=== PATIENT | female | born 1940 | race Caucasian/White ===

== ENCOUNTER → 2016-09-28 | Outpatient (CLI) | payer MEDICARE ==
[~2016-09-28] MED LIST: E-Z PAQUE 60% w/v SUSP 355ML BOTTLE As Ordered ONE; E-Z-GAS II EFFERVESCENT PACKET (SODIUM BICARB./CITRIC ACID/SIMETHICONE) As Ordered ONE; E-Z-HD 98% w/w 340GM SUSP BTL As Ordered ONE
--- NOTE | 2016-09-28 16:18 | REP ---
UPPER GI, AIR CONTRAST: The procedure was performed under the direct supervision of Dr. Rodriguez. The images were reviewed with Dr. Rodriguez. The physician support coordinator film shows no organomegaly or pathological masses. The intestinal gas pattern is nonspecific. There are surgical clips in the right upper quadrant. There are vascular calcifications identified. Liquid barium and gas-producing granules were given in the erect position as well as liquid barium in the prone oblique position in order to perform a double-contrast upper GI examination. The oral and pharyngeal stage of deglutition are unremarkable. Esophageal transport is prompt and efficient and there is no esophagitis, stricture, mucosal ring, or hiatal hernia. There is gastroesophageal reflux demonstrated to the level of the allison. The stomach corbin are normally outlined. The rugal folds are smooth and regular. There is no gastritis, neoplasm, or ulcer disease. The duodenal corbin are normally outlined. The mucosal folds are smooth and regular. There is no duodenitis, pancreatitis, peptic ulcer disease, or neoplasm. There is a diverticulum seen off the descending portion of the duodenum. The visualized portion of the proximal small bowel appears normal in course and caliber. IMPRESSION: 1. There is gastroesophageal reflux demonstrated to the level of the allison. 2. There is a diverticulum seen in the descending portion of the duodenum. 1 minute and 59 seconds of fluoroscopic time was utilized for this procedure. Reviewed by MARCELLUS Che 09/28/2016 05:06 PEdited and Signed by Stefan Rodriguez MD 09/29/2016 03:35 P
== END ==
LOC: M RAD 09:37
PROVIDERS: ATTEND Internal Medicine Cardiovascular Disease
DX: K44.9 Diaphragmatic hernia without obstruction or gangrene (principal)

== ENCOUNTER → 2016-10-05 | Outpatient (CLI) | payer MEDICARE ==
[~2016-10-05] MED LIST changes: -E-Z PAQUE 60% w/v SUSP 355ML BOTTLE As Ordered ONE; -E-Z-GAS II EFFERVESCENT PACKET (SODIUM BICARB./CITRIC ACID/SIMETHICONE) As Ordered ONE; -E-Z-HD 98% w/w 340GM SUSP BTL As Ordered ONE; +ISOVUE-370 76% 100ML VIAL (Q9967) As Ordered ONE
--- NOTE | 2016-10-08 09:41 | REP ---
Clinical: Peripheral arterial disease. Technique: Axial contrast enhanced images from the lung bases through the bilateral lower extremities using angiographic technique with 100 ml Isovue 370 intravenous contrast material. Coronal and sagittal re-formations through the abdomen/pelvis and lower extremities are obtained including batch MPR sequences of the aorta through lower extremities. Findings: Moderate mixed atheromatous plaquing noted of the abdominal aorta and bilateral common iliac arteries to the origins of the common femoral arteries with calcified plaque at the origins of the celiac access, SMA, and bilateral solitary renal arteries. Otherwise normal enhancement is appreciated and there is no evidence for aneurysm or dissection and no appreciable stenoses. With regards to the bilateral lower extremities, moderate amount of atheromatous plaque is appreciated involving the superficial femoral arteries (right greater than left) but with satisfactory enhancement to the level of the popliteal fossa where normal bilateral trifurcation is appreciated with satisfactory three-vessel runoff through the bilateral mid/distal calves and eventually two-vessel runoff to the left ankle with essentially single vessel runoff (posterior tibial artery) to the right ankle. Liver, pancreas, bilateral adrenal glands and right kidney are normal. Spleen demonstrates parenchymal calcifications suggesting prior granulomatous disease. Left kidney includes 5.3 cm simple upper pole renal cyst. The enteric system is without obstruction or acute inflammatory process. Scattered colonic and predominantly sigmoid diverticulosis noted without acute diverticulitis. Pelvis demonstrates normal bladder and evidence for prior hysterectomy. No ascites. No free air. No significant adenopathy. Musculoskeletal structures demonstrate degenerative changes without focal osseous abnormality. Impression: CT angiographic evaluation as detailed above. 5.3 cm simple left renal cyst. Diverticulosis without acute diverticulitis. Signed by Vitor Colin MD 10/08/2016 09:33 A
== END ==
LOC: M RAD 08:39
PROVIDERS: ATTEND Internal Medicine Cardiovascular Disease
DX: I73.9 Peripheral vascular disease, unspecified (principal)
CPT/HCPCS: 75635; Q9967

== ENCOUNTER → 2016-10-19 | Outpatient (CLI) | payer MEDICARE ==
--- NOTE | 2016-10-19 17:04 | REP ---
Left knee series: Five views: History: Acute left knee pain. Findings: Five views of the left knee demonstrate diffuse osteopenia. Vascular calcifications noted. There is mild medial compartment osteoarthritic spurring and minimal medial compartment joint space narrowing. There is also patellofemoral spurring laterally on the sunrise view. There is nonarticular spurring at the superior pole of the patella at the quadriceps tendon insertion as well. No joint effusion is seen. Impression: Mild medial and patellofemoral femoral compartment osteoarthritic spurring. Nonarticular patellar spurring is also noted. Vascular calcification seen. No acute abnormality. Signed by Aris Davison MD 10/19/2016 07:36 P
== END ==
LOC: M LRY 16:21
PROVIDERS: ATTEND Nurse Practitioner Family
DX: M25.762 Osteophyte, left knee (principal)

== ENCOUNTER → 2017-03-16 | Outpatient (CLI) | payer MEDICARE ==
--- NOTE | 2017-03-16 10:19 | REP ---
Clinical: Chronic renal disease. Follow-up left renal cyst. Comparison: 05/05/2016. Technique: Real time dobbs scale ultrasound examination using curved array transducer. Findings: The bilateral kidneys are relatively normal in contour, size, echogenicity, and reniform shape without hydronephrosis, nephrolithiasis, mass or right cystic lesion. No perinephric fluid collections are identified. Right kidney measures 9.8 x 4.1 x 5.2 cm. The left kidney measures 11.2 x 4.9 x 6.1 cm and includes a stable 5.6 x 4.7 x 4.8 cm mid/upper pole cyst. The bladder is unremarkable and currently measures approximately 10.0 x 10.0 x 4.1 cm. Impression: Stable left renal cyst. Otherwise normal renal ultrasound. Signed by Vitor Colin MD 03/16/2017 10:10 A
== END ==
LOC: M RAD 09:02
PROVIDERS: ATTEND Internal Medicine Nephrology
DX: N18.3 Chronic kidney disease, stage 3 (moderate) (principal); N28.1 Cyst of kidney, acquired

== ENCOUNTER → 2017-07-14 | Outpatient (REF) | payer MEDICARE ==
[2017-07-14 12:23] LABS: C REACTIVE PROTEIN QUANTITATIV < 0.30 MG/DL (0.00-0.30)
[2017-07-14 12:23] LABS: RHEUMATOID FACTOR QUANT 44.7 IU/ML (0-15.0)
[2017-07-14 12:28] LABS: BASO # 0.1 10^3/uL (0.0-0.2); BASO % 0.7 % (0.0-1.0); EOS # 0.3 10^3/uL (0.0-0.50); HEMATOCRIT 39.2 % (36.0-47.0); HEMOGLOBIN 13.9 g/dl (12.0-16.0); IMMATURE GRANULOCYTE % 0.4 % (0-0); LYMPH # 2.6 10^3/uL (1.5-4.5); LYMPH % 32.8 % (24.0-44.0); MEAN CORPUSCULAR HEMOGLOBIN 32.6 pg (27.0-33.0); MEAN CORPUSCULAR HGB CONC 35.5 g/dl (32.0-36.5); MEAN CORPUSCULAR VOLUME 91.8 fl (80.0-96.0); MONO # 0.5 10^3/uL (0.0-0.8); MONO % 6.5 % (0.0-5.0); NEUTROPHILS # 4.5 10^3/uL (1.8-7.7); NEUTROPHILS % 55.6 % (36.0-66.0); PLATELET COUNT, AUTOMATED 284 10^3/uL (150-450); RED BLOOD COUNT 4.27 10^6/uL (4.00-5.40); RED CELL DISTRIBUTION WIDTH 12.5 % (11.5-14.5)
[2017-07-14 13:03] LABS: ERYTHROCYTE SEDIMENTATION RATE 17 mm/hr (0-30)
== END ==
LOC: M LABDRAW1 10:21
DX: M17.12 Unilateral primary osteoarthritis, left knee (principal); Z79.899 Other long term (current) drug therapy
CPT/HCPCS: 86140

== ENCOUNTER 2018-05-13 08:17 | Day surgery (SDC) | payer MEDICARE ==
[2018-05-13] MEDS: NS 1,000 ML IV (06:30)
[~2018-05-13 08:17] MED LIST changes: -ISOVUE-370 76% 100ML VIAL (Q9967) As Ordered ONE; +LIDOCAINE 2% INJ 100 MG/5 ML SDV (FOR ANES.) As Ordered; +PROPOFOL 200 MG/20 ML VIAL As Ordered
== END 2018-05-13 13:25 | disposition home or self-care (01) ==
LOC: M OPP 08:17
DX: Z12.11 Encounter for screening for malignant neoplasm of colon (principal); Z86.010 Personal history of colon polyps; D12.3 Benign neoplasm of transverse colon; D12.0 Benign neoplasm of cecum; K63.5 Polyp of colon; K64.8 Other hemorrhoids; K57.30 Diverticulosis of large intestine without perforation or abscess without bleeding; F17.210 Nicotine dependence, cigarettes, uncomplicated; E78.00 Pure hypercholesterolemia, unspecified; I12.9 Hypertensive chronic kidney disease with stage 1 through stage 4 chronic kidney disease, or unspecified chronic kidney disease; E11.9 Type 2 diabetes mellitus without complications; K21.9 Gastro-esophageal reflux disease without esophagitis; M12.9 Arthropathy, unspecified; F32.9 Major depressive disorder, single episode, unspecified; N18.9 Chronic kidney disease, unspecified; Z79.899 Other long term (current) drug therapy; Z79.82 Long term (current) use of aspirin; Z79.4 Long term (current) use of insulin; Z88.5 Allergy status to narcotic agent; Z91.018 Allergy to other foods
CPT/HCPCS: 45385

== ENCOUNTER → 2018-08-26 | Outpatient (CLI) | payer MEDICARE ==
[~2018-08-26] MED LIST changes: +AMLO2.5T3 PO; +ASPI-161 PO; +CO Q10CA PO; +FAMO1TAB25 PO; +GABA-1171 PO; +GLIP5TAB20 PO; +INSULANT SC; +JANU100T PO; -LIDOCAINE 2% INJ 100 MG/5 ML SDV (FOR ANES.) As Ordered; +PANT40TA3 PO; +PROBCAP4 PO; -PROPOFOL 200 MG/20 ML VIAL As Ordered; +VITA100067 PO; +ZOLO25TA PO
--- NOTE | 2018-08-26 10:23 | REP ---
Bilateral carotid artery duplex ultrasound: Peak flow velocity analysis: RIGHT LEFT ICA Peak flow velocity cm/sec 75.8 151.0 ICA Diastolic flow velocity cm/sec 21.6 38.5 ICA/CCA Ratio 0.9 2.1 ECA Peak flow velocity cm/sec 132.4 100.7 CCA Peak flow velocity cm/sec 85.6 73.4 There is heavy atheromatous plaque in the proximal left ICA. There is elevated peak flow velocity in the left proximal ICA compatible with 50 - 69% stenosis. Otherwise, no atheromatous plaque is identified. There is no stenosis otherwise. There is flow reversal in the right vertebral artery. There is antegrade flow in the left vertebral artery. This may represent right subclavian steal. Consider CTA of the aortic arch, subclavian arteries and extracranial carotid arteries. Electronically Signed by Stefan Eller MD 08/26/2018 10:14 A
--- NOTE | 2018-08-26 13:51 | REP ---
RIGHT UPPER EXTREMITY DUPLEX DOPPLER ARTERIAL ULTRASOUND: Real-time ultrasound evaluation and duplex Doppler interrogation of the right upper extremity arterial system is performed. There is evidence of severe stenosis or occlusion of the distal right subclavian artery with reconstitution via reversal flow in the right vertebral artery. Central right subclavian artery demonstrates peak systolic velocity 47 cm/s. No flow is seen in the right subclavian artery up to the mid aspect immediately distal to the anastomosis with the right vertebral artery. Monophasic wave forms are seen peripheral to this throughout the right upper extremity arterial system. Peak systolic velocity of the mid right subclavian arteries is 73 cm/s, distal 39 cm/s. Peak systolic velocity right axillary artery 47 cm/s, brachial artery 56 cm/s, radial artery 46 cm/s and ulnar artery 52 cm/s. IMPRESSION: There is evidence of occlusion or severe stenosis mid right subclavian artery with reconstitution via the right vertebral artery, with reversal of flow in that vertebral artery. Findings consistent with subclavian steal on the right. Electronically Signed by Stefan Rodriguez MD 08/26/2018 04:03 P
== END ==
LOC: M RAD 08:51
PROVIDERS: ATTEND Surgery Vascular Surgery
DX: I65.23 Occlusion and stenosis of bilateral carotid arteries (principal); I77.1 Stricture of artery

== ENCOUNTER → 2018-09-08 | Outpatient (CLI) | payer MEDICARE ==
--- NOTE | 2018-09-08 16:26 | REP ---
Clinical: Positive rheumatoid factor. Technique: AP, lateral, bilateral oblique views of the right and left hand. Findings: Right hand demonstrates subchondral sclerosis, joint space narrowing and marginal osteophytosis involving the interphalangeal joints and most notably the second and fifth distal interphalangeal joints. Mild elements of periarticular swelling are suggested without significant erosive changes or obvious periarticular loose bodies. Subchondral sclerosis and joint space narrowing at the radiocarpal joint line are also identified. The ulnar styloid and triquetrum appear relatively intact. No fracture or dislocation. Left hand demonstrates subchondral sclerosis, joint space narrowing and mild marginal osteophytosis primarily involving the interphalangeal joints. Minimal periarticular swelling identified at the second and third interphalangeal joints. No significant erosive changes or periarticular loose bodies are identified. Subchondral sclerosis and joint space narrowing at the radiocarpal joint line are also identified. The ulnar styloid and triquetrum appear relatively intact. No fracture or dislocation. Impression: Moderate/advanced osteoarthritic degenerative changes. Electronically Signed by Vitor Colin MD 09/08/2018 04:17 P
== END ==
LOC: M LRY 15:23
PROVIDERS: ATTEND Internal Medicine Rheumatology
DX: R76.8 Other specified abnormal immunological findings in serum (principal); M19.041 Primary osteoarthritis, right hand; M19.042 Primary osteoarthritis, left hand

== ENCOUNTER → 2018-11-10 | Outpatient (CLI) | payer MEDICARE ==
[~2018-11-10] MED LIST changes: +B121000T PO; +BENA5TA PO; +GLIP2.5T6 PO
--- NOTE | 2018-11-10 12:36 | REP ---
RENAL ULTRASOUND: HISTORY: Chronic kidney disease. The kidneys are normal in echogenicity. The right kidney measures 4.5 cm in transverse by 3.9 cm in AP by 9.3 cm in cephalocaudal dimensions. The left kidney measures 3.4 cm in transverse by 5.6 cm in AP by 10.7 cm in cephalocaudal dimensions. A 0.7 cm cyst is present in the lower pole of the right kidney. A 6.1 cm cyst is present in the upper pole of the left kidney. There is no hydronephrosis or mass. There are no filling defects in the urinary bladder. IMPRESSION: Bilateral renal cysts. Electronically Signed by Enzo Lock MD 11/10/2018 12:43 P
== END ==
LOC: M RAD 08:56
PROVIDERS: ATTEND Internal Medicine Nephrology
DX: N28.1 Cyst of kidney, acquired (principal); N18.3 Chronic kidney disease, stage 3 (moderate); I15.0 Renovascular hypertension

== ENCOUNTER → 2019-03-07 | Outpatient (CLI) | payer MEDICARE ==
[~2019-03-07] MED LIST changes: +LIQUID POLIBAR PLUS 105% w/v 1900ML BTL As Ordered ONE; +PROHANCE 279.3MG/ML 5ML VIAL (A9576) As Ordered ONE
--- NOTE | 2019-03-07 23:36 | REP ---
BARIUM AND AIR CONTRAST The procedure was performed under the direct supervision of Dr. Rodriguez. The images were reviewed with Dr. Rodriguez. The store associate film shows no organomegaly or pathological masses. The intestinal gas pattern is nonspecific. There are surgical clips noted in the right upper quadrant. Liquid barium and air were instilled into the colon and retrograde flow of the barium air mixture. There is free flow of contrast to the cecum. The cecum is difficult to see as it lies deep in the pelvis. There is reflux into the terminal ileum. There are innumerable diverticula in the sigmoid colon. The sigmoid colon is redundant. This limits evaluation for polyps. There are no annular constricting lesions identified. There are no polypoid masses identified. Impression: There are innumerable diverticula seen throughout the sigmoid colon and scattered diverticula seen throughout the remainder of the colon. Otherwise, double contrast barium enema within normal limits. 1.4 minutes of fluoroscopy time was utilized for this procedure. Reviewed by MARCELLUS Che 03/07/2019 04:43 P Electronically Signed by Stefan Rodriguez MD 03/07/2019 11:27 P
== END ==
LOC: M RAD 08:55
PROVIDERS: ATTEND Internal Medicine Gastroenterology
DX: K57.30 Diverticulosis of large intestine without perforation or abscess without bleeding (principal)

== ENCOUNTER → 2019-04-10 | Outpatient (CLI) | payer MEDICARE ==
[~2019-04-10] MED LIST changes: -LIQUID POLIBAR PLUS 105% w/v 1900ML BTL As Ordered ONE; -PROHANCE 279.3MG/ML 5ML VIAL (A9576) As Ordered ONE
--- NOTE | 2019-04-10 15:21 | REP ---
REASON: Followup stenosis. The latest prior examination of 08/26/2018 showed a 50-69% stenosis in the left internal carotid artery. Once again, there is echogenic material seen along the carotid arterial corbin some of which casts an acoustic shadow consistent with calcific deposition and seemingly slightly increased from the prior exam of 08/26/2018. RIGHT LEFT CCA Systolic 103.5 cm/s 85.6 cm/s CCA Diastolic 14.5 cm/s 12.1 cm/s ICA Systolic 111.1 cm/s 286.9 cm/s ICA Diastolic 25.8 cm/s 83.3 cm/s ICA/CCA Ratio 1.1 3.4 Analysis of the spectral waveform shows significant left internal carotid arterial spectral broadening with complete fill in of the spectral window. There is retrograde flow in the right vertebral artery. IMPRESSION: 1. There is greater than 70% stenosis of the left internal carotid artery according to the NASCET consensus criteria. 2. There is a right sided subclavian steal syndrome. 3. Stenosis is secondary to both calcified and noncalcified atheromatous plaque formation which appears to have increased somewhat from the prior exam. Electronically Signed by Cesar Delacruz DO 04/11/2019 09:41 A
== END ==
LOC: M RAD 11:23
PROVIDERS: ATTEND Surgery Vascular Surgery
DX: I65.23 Occlusion and stenosis of bilateral carotid arteries (principal)

== ENCOUNTER → 2019-07-25 | Outpatient (CLI) | payer MEDICARE ==
--- NOTE | 2019-07-25 11:12 | REP ---
CAROTID ULTRASOUND: Real-time ultrasound evaluation and duplex Doppler interrogation of the extracranial carotid vasculature is performed and compared to a prior study of 04/10/2019. There is again moderate plaquing and narrowing in the carotid bulbs and internal carotid arteries left greater than right. There is gain elevated peak systolic velocity in the left internal carotid artery 262.8 cm/s compatible with greater than 70% stenosis. ICA/CCA ratio is elevated. Retrograde flow is seen in the right vertebral artery compatible with subclavian steel. There is increased velocity with antegrade flow in the left vertebral artery. RIGHT LEFT Peak systolic velocity ICA 115.3 cm/s 262.8 cm/s End diastolic velocity ICA 29.4 cm/s 39.7 cm/s Peak systolic velocity CCA 98.3 cm/s 93.1 cm/s Peak systolic velocity ECA 178.9 cm/s 111.1 cm/s ICA/CCA ratio 1.17 3.36 IMPRESSION: No significant change when compared to a prior study of 04/10/2019. There are again findings compatible with stenosis of the left ICA over 70%. Retrograde flow in the right vertebral artery is compatible with right-sided subclavian steel. Electronically Signed by Stefan Rodriguez MD 07/25/2019 07:20 P
== END ==
LOC: M RAD 08:45
PROVIDERS: ATTEND Physician Assistant
DX: I65.23 Occlusion and stenosis of bilateral carotid arteries (principal)

== ENCOUNTER 2019-08-19 21:42 | Inpatient (IN) | payer MEDICARE ==
[~2019-08-19] VITALS: Ht 160 cm; Wt 60.5 kg
[2019-08-19 23:35] VITALS: BP 160/66
[2019-08-19] MEDS ORDERED: NS 1,000 ML IV SCH (23:45)
--- NOTE | 2019-08-19 23:56 | HPEPDOC ---
[facility] Medical History & Physical Date of Admission Aug 19, 2019 Date of Service: Aug 19, 2019 Attending Physician: TOMAS LANGFORD MD History and Physical TIME OF SERVICE: 11:59 PM CHIEF COMPLAINT: Abdominal pain HISTORY OF PRESENT ILLNESS: This is a 72 old female who presented to an outside hospital with complaints of mid upper cramping and out of 10 in severity, abdominal pain that began around 3 PM. Associated symptoms included nausea, fevers and chills. She has been able to pass and thinks her last BM was about 3 days ago. Per discussion with Dr. Andrey Cardenas her initial workup including CBC, chemistry, lipase and H. pylori were unremarkable. CT of the abdomen showed partial small bowel obstruction secondary to adhesions or stricture, and chronic old L2 fracture . REVIEW OF SYSTEMS: 12 point review of systems negative except as listed in HPI PAST MEDICAL/ SURGICAL HISTORY: IDDM with neuropathy. Chronic HTN Chronic constipation GERD Osteoporosis/L2 lumbar fracture Herniated disc Status post cholecystectomy Status post hysterectomy SOCIAL HISTORY: She smokes FAMILY HISTORY: Arthritis Hypertension CVA CAD ALLERGIES: Please see below. HOME MEDICATIONS: Please see below. PHYSICAL EXAMINATION: VITAL SIGNS: Please see below. GEN: well-nourished / well developed/ NAD INTEGUMENT: not flushed HEENT: NCAT / mucus membranes moist and pink CVS: RRR/NMRG/ no JVP / radial pulses intact LUNGS: clear to auscultation bilaterally on room air ABDOMEN: Contour (flat) / soft & not tender with palpation MSK/EXTREMITIES: range of motion intact in all 4 extremities NEURO: CN 2-12 are grossly intact / speech is not dysarthric PSYCH: alert and oriented to person place and time/ able to understand and follow all commands LABORATORY DATA: WBC 10.4, hemoglobin 13.2, platelets 194, sodium 136, potassium 4.3, chloride 100, CO2 24, BUN 22, creatinine 1.2, glucose 224, lipase 67, H. pylori negative IMAGING: See HPI ASSESSMENT: Ms. Martin is [id number] female with a history of IDDM with neuropathy, HTN, constipation GERD, osteoporosis and multiple abdominal surgeries, who is admitted for evaluation of partial small bowel obstruction. PLAN: 1. Partial small bowel obstruction. Likely due to strictures/adhesions. Plan: Admit to medical floor/nothing by mouth/IV fluids/morphine when necessary for pain/follow-up KUB in the morning/follow up with general surgery 2. IDDM with neuropathy - Plan: f/u accuchecks & A1C / hypoglycemia protocol / sliding scale insulin / hold oral anti-glycemics / while she is NPO we will give her D5NS and will decrease her insulin to detemir 15 units daily QHS ( her home dose is Lantus 32 units QHS) / gabapentin 3. Chronic HTN -Plan: Resume Benzapril 4. Dyslipidemia - Plan: Aspirin/statin 5. Osteoporosis/L2 lumbar fracture - Plan: She will need a workup for oste oporosis including DEXA scan, TSH, and urine calcium which can be done on an outpatient basis DVT PROPHYLAXIS: Lovenox DISPOSITION: Home after more than 2 midnight's stay Home Medications Scheduled Aspirin (Aspirin EC) 81 Mg Tab, 81 MG PO QPM Atorvastatin Calcium (Atorvastatin Calcium) 10 Mg Tablet, 10 MG PO QPM Benazepril HCl (Benazepril HCl) 5 Mg Tab, 2.5 MG PO DAILY Cholecalciferol (Vitamin D3) (Vitamin D3) 1,000 Unit Capsule, 1,000 UNIT PO DAILY Clopidogrel Bisulfate (Clopidogrel) 75 Mg Tablet, 75 MG PO QPM TAKES AT 1300 Cyanocobalamin (Vitamin B-12) (Vitamin B-12) 100 Mcg Tablet, 100 MCG PO DAILY Famotidine (Famotidine) 10 Mg Tab, 40 MG PO QPM Gabapentin (Gabapentin) 100 Mg Cap, 100 MG PO BID Glipizide (Glipizide ER) 5 Mg Tab, 5 MG PO QAM Glipizide (Glipizide ER) 2.5 Mg Tab, 2.5 MG PO QHS Insulin Glargine (Lantus) 1 Units/0.01 Ml Susp, 32 UNITS SC QHS Lactobacillus Acidophilus (Probiotic) 1 Each Capsule, 1 CAP PO BID Magnesium Oxide (Magnesium Oxide) 500 Mg Tablet, 500 MG PO QPM Nicotine (Nicotine Patch) 14 Mg Patch.td24, 1 PATCH TD DAILY [place]land-3 Fatty Acids/Fish Oil (Fish Oil 1,000 mg Capsule) 1 Each Capsule, 1,000 MG PO DAILY Polyethylene Glycol 3350 (Polyethylene Glycol 3350) 17 Gm Powd.pack, 1 PKT PO DAILY Sennosides/Docusate Sodium (Senokot-S Tablet) 1 Each Tablet, 1 TAB PO BID Sertraline Hcl (Zoloft) 25 Mg Tab, 25 MG PO DAILY Ubidecarenone (Co Q10) 200 Mg Capsule, 200 MG PO QPM Allergies Coded Allergies: Crab (Verified Allergy, Severe, swelling, 09/21/18) Mushroom (Verified Allergy, Severe, swelling, 09/21/18) codeine (Verified Allergy, Severe, SWELLING, 08/20/19) A-FIB/CHADSVASC A-FIB History Current/History of A-Fib/PAF?: No Current PO Anticoag Therapy: TOMAS Marquez MD Aug 19, 2019 23:56
[2019-08-20] MEDS ORDERED: ONDANSETRON 4MG/2ML VIAL (J2405) IV PRN (00:15)
[2019-08-20] MEDS ORDERED: MORPHINE 2 MG/ML 1ML VIAL (J2270) IV PRN (00:15)
[2019-08-20 00:22] LABS: HEMATOCRIT 38.5 % (36.0-47.0); HEMOGLOBIN 13.1 g/dl (12.0-15.5); MEAN CORPUSCULAR HEMOGLOBIN 31.3 pg (27.0-33.0); MEAN CORPUSCULAR VOLUME 91.9 fl (80.0-96.0); PLATELET COUNT, AUTOMATED 193 10^3/uL (150-450); RED BLOOD COUNT 4.19 10^6/uL (4.00-5.40); WHITE BLOOD COUNT 6.8 10^3/uL (4.0-10.0)
[2019-08-20 00:33] LABS: INR 1.07; PROTHROMBIN TIME 13.6 SECONDS (11.8-14.0)
[2019-08-20 00:34] LABS: PARTIAL THROMBOPLASTIN TIME 23.3 SECONDS (25.0-38.4)
[2019-08-20] MEDS ORDERED: PROBCAP14 PO (00:46)
[2019-08-20] MEDS ORDERED: B-12100T2 PO (00:46)
[2019-08-20] MEDS ORDERED: COQ1200C3 PO (00:46)
[2019-08-20] MEDS ORDERED: VITA100054 PO (00:46)
[2019-08-20] MEDS ORDERED: CLOP75TA2 PO (00:49)
[2019-08-20] MEDS ORDERED: FISH1000 PO (00:49)
[2019-08-20] MEDS ORDERED: MAGN500T12 PO (00:49)
[2019-08-20] MEDS ORDERED: ATOR1TAB19 PO (00:49)
[2019-08-20 00:52] LABS: ALBUMIN 3.9 GM/DL (3.2-5.2); BILIRUBIN,TOTAL 0.3 MG/DL (0.2-1.0); CALCIUM LEVEL 8.6 MG/DL (8.8-10.2); CREATININE FOR GFR 1.21 MG/DL (0.55-1.30); GLOMERULAR FILTRATION RATE 45.8 (>39); POTASSIUM SERUM 4.8 MEQ/L (3.5-5.1); TOTAL PROTEIN 7.1 GM/DL (6.4-8.2)
[2019-08-20] MEDS: NICOTINE 14 MG/24 HR TRANSDERMAL TD SCH ×2 (01:29→10:02)
[2019-08-20] MEDS ORDERED: GLUCOSE 4 GM CHEW TABLET PO PRN (05:30)
[2019-08-20] MEDS ORDERED: GLUCAGON FOR INJ 1 MG VIAL (J1610) SC PRN (05:30)
[2019-08-20] MEDS ORDERED: DEXTROSE 50% 50 ML SYRINGE IV PRN (05:30)
[2019-08-20 06:00] VITALS: BP 101/62
[2019-08-20] MEDS ORDERED: D5/0.9%NACL 1000ML IV ONE (06:00)
[2019-08-20] MEDS ORDERED: PILL CUTTER 1 EACH XX PRN (06:15)
[2019-08-20] MEDS ORDERED: D5W/0.9% SODIUM CHLORIDE 1,000 ML IV SCH (06:15)
[2019-08-20 06:31] LABS: HEMATOCRIT 36.9 % (36.0-47.0); HEMOGLOBIN 12.4 g/dl (12.0-15.5); MEAN CORPUSCULAR HEMOGLOBIN 31.3 pg (27.0-33.0); MEAN CORPUSCULAR HGB CONC 33.6 g/dl (32.0-36.5); MEAN CORPUSCULAR VOLUME 93.2 fl (80.0-96.0); PLATELET COUNT, AUTOMATED 189 10^3/uL (150-450); RED BLOOD COUNT 3.96 10^6/uL (4.00-5.40); WHITE BLOOD COUNT 10.9 10^3/uL (4.0-10.0)
[2019-08-20 06:48] LABS: CALCIUM LEVEL 8.6 MG/DL (8.8-10.2); CREATININE FOR GFR 1.13 MG/DL (0.55-1.30); GLOMERULAR FILTRATION RATE 49.6 (>39); MAGNESIUM LEVEL 2.2 MG/DL (1.8-2.4); POTASSIUM SERUM 4.5 MEQ/L (3.5-5.1)
[2019-08-20] MEDS ORDERED: ENOXAPARIN 40 MG/0.4 ML SYRINGE (J1650) SC SCH (09:00)
[2019-08-20] MEDS ORDERED: SERTRALINE HCL 25 MG TABLET PO SCH (09:00)
[2019-08-20] MEDS ORDERED: GABAPENTIN 100 MG CAP PO SCH (09:00)
[2019-08-20] MEDS ORDERED: MIRALAX *UNIT DOSE* 17GM PACKET PO SCH (09:00)
[2019-08-20] MEDS ORDERED: BENAZEPRIL 5 MG TAB PO SCH (09:00)
--- NOTE | 2019-08-20 09:04 | REP ---
Clinical: Follow up small bowel obstruction. Technique: Single supine view of the abdomen and pelvis. Findings: Oral contrast identified within the large bowel requires correlation. The bowel gas pattern is nonspecific and there is no evidence for obstruction or obvious perforation. No organomegaly. Prior cholecystectomy. Skeletal structures demonstrate age-related changes. Impression: Nonspecific bowel gas pattern. Contrast material outlines the colon. Electronically Signed by Vitor Colin MD 08/20/2019 08:55 A
[2019-08-20 10:00] VITALS: BP 129/77
[2019-08-20] MEDS ORDERED: MOM 30ML SUSPENSION UDC PO ONE (10:00)
[2019-08-20 10:05] VITALS: BP 129/77
--- NOTE | 2019-08-20 10:25 | CR.PDOC ---
General Surgery Consultation Date of Consultation 08/20/19 History and Physical CONSULT REPORT FOR: hospitalist service REASON FOR CONSULTATION: ? partial sbo HISTORY OF PRESENT ILLNESS: Patient is admitted by the overnight hospitalist from [facility] with complaints of sharp epigastric abdominal pain that abruptly started at about 3 pm yesterday associated with nausea. Labs done were normal. CT was read as possible partial sbo and thus was transferred here. While in the ER she received IV dilaudid 0.5 mg IV twice, last one at 19:59. It does not look like she received further pain medications with us overnight. She got a dose of milk of magnesia this morning and is ordered for miralax daily. She had an xray this morning showing nonobstructive bowel pattern. At the time I saw her, she was on full liquids and reports tolerating it. No BMs yet. PAST MEDICAL HISTORY: IDDM with neuropathy. Chronic HTN Chronic constipation GERD Osteoporosis/L2 lumbar fracture Herniated disc neuropathy PAST SURGICAL HISTORY: INCLUDES: Status post cholecystectomy Status post hysterectomy ALLERGIES: Please see below. HOME MEDICATIONS: Please see below. REVIEW OF SYSTEMS: GENERAL: denies fevers, chills, abnormal weight loss. NECK: Denies any neck pain MUSCULOSKELETAL: reports back pain. SKIN: Denies rash. NEUROLOGIC: Denies headache, stroke and transient ischemic attack. HEMATOLOGY/ONCOLOGY: Denies bleeding or clotting disorder. HEART: Denies any chest pains, palpitations, paroxysmal dyspnea, orthopnea. PULMONARY: Denies chronic cough, dyspnea and wheezing. GASTROINTESTINAL: see HPI. GENITOURINARY: Denies dysuria, frequency, hematuria and nocturia. ENDOCRINE: Denies polydipsia, polyphagia, polyuria, heat or cold intolerance. INFECTIOUS: Denies any recent upper respiratory tract infection, UTI, need for use of antibiotics. NUTRITION: Reports good appetite. PHYSICAL EXAMINATION: VITALS SIGNS: Please see below. GENERAL APPEARANCE:Patient see working on her full liquids, denies any discomfort at this time. SKIN: warm and dry. HEENT: Normocephalic, atraumatic. [place] palpebral conjunctiva, anicteric sclerae. Lips and mucosa appear moist. NECK: Supple, no thyromegaly. No obvious jugular venous distention. LUNGS: Clear to auscultation bilaterally. No wheezing appreciated. HEART: No chest wall abnormalities. Regular rate and rhythm with no murmurs appreciated. ABDOMEN: Abdomen is slight rounded, minimally distended, soft, nontender on palpation. Her laparoscopic cholecystectomy port sites are actually hard to find. She has a lowe midline incision from her hysterectomy without any associated incisional hernias. Nontender on palpation. EXTREMITIES: Extremities have no deformities. No edema identified ANCILLARIES: I reviewed her colonoscopy reports performing Dr. Duncan on 05/13/2018 showing diverticulosis with some slight narrowing of the sigmoid colon associated with this. She had a barium enema performed 03/07/2019 showing multiple diverticula throughout the colon but no gross persistent stenosis or obstruction. LABORATORY DATA: Please see below. IMAGING STUDIES: She had a CT of the abdomen and pelvis done at [facility] Read as partial small bowel obstruction with a focal transition zone at the left lower quadrant of the pelvis without discrete mass. Fecalization of small bowel loops in the jejunum to the level of the left lowr quadrant of the pelvis. SB dilated to 3.3 cms Abdominal x-ray done 08/30/2019 shows no obstructive pattern IMPRESSION AND PLAN: Abdominal pain possibly secondary to partial small bowel obstruction seems to resolve by itself. On her xray this morning the contrast that she had on her CT is visualized on her colon. No noticeable leftover distention of the small bowel. I think the obstruction probably have resolved and we can advance diet as she is able to tolerate. Agree with miralax. Vital Signs Vital Signs Date Time Temp Pulse Resp B/P (MAP) Pulse Ox O2 Delivery O2 Flow Rate FiO2 08/20/19 06:00 97.9 77 18 101/62 (75) 95 Room Air I&Os I&O- Last 24 Hours up to 6 AM 08/20/19 06:00 Intake Total 60 ml Output Total 400 ml Balance -340 ml Laboratory Data Labs 24H Laboratory Tests 2 08/20/19 00:10: Nucleated Red Blood Cells % (auto) 0.0, Prothrombin Time 13.6, Prothromb Time International Ratio 1.07, Activated Partial Thromboplast Time 23.3L, Anion Gap 7L, Glomerular Filtration Rate 45.8, Calcium Level 8.6L, Total Bilirubin 0.3, Aspartate Amino Transf (AST/SGOT) 15, Alanine Aminotransferase (ALT/SGPT) 24, Alkaline Phosphatase 54, Total Protein 7.1, Albumin 3.9, Albumin/Globulin Ratio 1.22 08/20/19 00:54: Urine Color YELLOW, Urine Appearance CLEAR, Urine pH 6.0, Urine Specific [place] 1.053, Urine Protein NEGATIVE, Urine Glucose (UA) 2+H, Urine Ketones NEGATIVE, Urine Blood NEGATIVE, Urine Nitrite NEGATIVE, Urine Bilirubin NEGATIVE, Urine Ur obilinogen 0.2, Urine Leukocyte Esterase NEGATIVE, Urine WBC (Auto) 1, Urine RBC (Auto) 4H, Urine Hyaline Casts (Auto) 0, Urine Bacteria (Auto) NEGATIVE, Urine Squamous Epithelial Cells 0, Urine Mucus (Auto) SMALL, Urine Sperm (Auto) 08/20/19 06:00: Nucleated Red Blood Cells % (auto) 0.0, Anion Gap 7L, Glomerular Filtration Rate 49.6, Calcium Level 8.6L, Magnesium Level 2.2 CBC/BMP Laboratory Tests 08/20/19 00:10 08/20/19 06:00 Home Medications Scheduled Aspirin (Aspirin EC) 81 Mg Tab, 81 MG PO QPM, (Reported) Atorvastatin Calcium (Atorvastatin Calcium) 10 Mg Tablet, 10 MG PO QPM, (Reported) Benazepril HCl (Benazepril HCl) 5 Mg Tab, 2.5 MG PO DAILY, (Reported) Cholecalciferol (Vitamin D3) (Vitamin D3) 1,000 Unit Capsule, 1,000 UNIT PO DAILY, (Reported) Clopidogrel Bisulfate (Clopidogrel) 75 Mg Tablet, 75 MG PO QPM, (Reported) TAKES AT 1300 Cyanocobalamin (Vitamin B-12) (Vitamin B-12) 100 Mcg Tablet, 100 MCG PO DAILY, (Reported) Famotidine (Famotidine) 10 Mg Tab, 40 MG PO QPM, (Reported) Gabapentin (Gabapentin) 100 Mg Cap, 100 MG PO BID, (Reported) Glipizide (Glipizide ER) 5 Mg Tab, 5 MG PO QAM, (Reported) Glipizide (Glipizide ER) 2.5 Mg Tab, 2.5 MG PO QHS, (Reported) Insulin Glargine (Lantus) 1 Units/0.01 Ml Susp, 32 UNITS SC QHS, (Reported) Lactobacillus Acidophilus (Probiotic) 1 Each Capsule, 1 CAP PO BID, (Reported) Magnesium Oxide (Magnesium Oxide) 500 Mg Tablet, 500 MG PO QPM, (Reported) [place]-3 Fatty Acids/Fish Oil (Fish Oil 1,000 mg Capsule) 1 Each Capsule, 1,000 MG PO DAILY, (Reported) Sertraline Hcl (Zoloft) 25 Mg Tab, 25 MG PO DAILY, (Reported) Ubidecarenone (Co Q10) 200 Mg Capsule, 200 MG PO QPM, (Reported) Allergies Coded Allergies: Crab (Verified Allergy, Severe, swelling, 09/21/18) Mushroom (Verified Allergy, Severe, swelling, 09/21/18) codeine (Verified Allergy, Severe, SWELLING, 08/20/19) NATHAN HOGAN MD Aug 20, 2019 09:52
[2019-08-20] MEDS ORDERED: CLOPIDOGREL 75 MG TAB PO SCH (13:00)
[2019-08-20 14:00] VITALS: BP 131/73
[2019-08-20] MEDS ORDERED: PEG1POW PO (15:16)
[2019-08-20] MEDS ORDERED: SENO8.6T10 PO (15:16)
[2019-08-20] MEDS ORDERED: NICO14PA TD (15:16)
--- NOTE | 2019-08-20 15:31 | DS.PDOC ---
Discharge Summary General Date of Admission Aug 19, 2019 at 23:50 Date of Discharge aug 20, 2019 Discharge Summary DISCHARGE DIAGNOSES: partial sbo Ileus IDDM with neuropathy. Chronic HTN Chronic constipation GERD GENERAL SURGEON: Dr Hernandez HOSPITAL COURSE: 78 year old female presented with abd pain to an outlying hospital where CT abd: partial SBO, admitted to [facility] for surgical services. She was kept npo, given ivfluids, given miralax with 4 bowel movements, and no subsequent nausea. Abdom inal distension subsided, and despite having one episode of vomiting at 11pm last night, wanted to eat a regular diet this morning. repeat abdominal xray:. The bowel gas pattern is nonspecific and there is no evidence for obstruction or obvious perforation.No organomegaly. Prior cholecystectomy. Skeletal structures demonstrate age-related changes. She tolerated full liquid diet, and ambulated 3 x around the nurse's station without pain, or worsening abdominal distention. She requested to be discharged home. She has had prior colonoscopies in the past and had polyps removed. She was instructed to have immediate followup with both her primary care physician and surgeon within one week of hospital discharge. DISCHARGE MEDICATIONS: Please see below. ALLERGIES: Please see below. PHYSICAL EXAMINATION ON DISCHARGE: VITAL SIGNS: Please see below. GEN: AAOx3 Lungs: CTAB AEBE Heart: S1S2 RRR Abd: soft nontender nondistended (+) BS ext: no edema LABORATORY DATA/IMAGING: Please see below. DISPOSITION: HOME DISCHARGE INSTRUCTIONS: FU W PCP AND GENERAL SURGERY IN 1 WK RETURN TO ER IF RECURRENT SYMPTOMS DISCHARGE CONDITION: STABLE TIME SPENT ON DISCHARGE: 30 minutes. Vital Signs/I&Os Vital Signs Date Time Temp Pulse Resp B/P (MAP) Pulse Ox O2 Delivery O2 Flow Rate FiO2 08/20/19 10:05 129/77 08/20/19 10:00 97.6 63 18 98 08/20/19 06:00 Room Air I&O- Last 24 Hours up to 6 AM 08/20/19 06:00 Intake Total 60 ml Output Total 400 ml Balance -340 ml Laboratory Data Labs 24H Laboratory Tests 2 08/20/19 00:10: Nucleated Red Blood Cells % (auto) 0.0, Prothrombin Time 13.6, Prothromb Time International Ratio 1.07, Activated Partial Thromboplast Time 23.3L, Anion Gap 7L, Glomerular Filtration Rate 45.8, Calcium Level 8.6L, Total Bilirubin 0.3, Aspartate Amino Transf (AST/SGOT) 15, Alanine Aminotransferase (ALT/SGPT) 24, Al kaline Phosphatase 54, Total Protein 7.1, Albumin 3.9, Albumin/Globulin Ratio 1.22 08/20/19 00:54: Urine Color YELLOW, Urine Appearance CLEAR, Urine pH 6.0, Urine Specific [place] 1.053, Urine Protein NEGATIVE, Urine Glucose (UA) 2+H, Urine Ketones NEGATIVE, Urine Blood NEGATIVE, Urine Nitrite NEGATIVE, Urine Bilirubin NEGATIVE, Urine Urobilinogen 0.2, Urine Leukocyte Esterase NEGATIVE, Urine WBC (Auto) 1, Urine RBC (Auto) 4H, Urine Hyaline Casts (Auto) 0, Urine Bacteria (Auto) NEGATIVE, Urine Squamous Epithelial Cells 0, Urine Mucus (Auto) SMALL, Urine Sperm (Auto) 08/20/19 06:00: Nucleated Red Blood Cells % (auto) 0.0, Anion Gap 7L, Glomerular Filtration Rate 49.6, Calcium Level 8.6L, Magnesium Level 2.2 08/20/19 11:32: Bedside Glucose (Misc Panel) 181H CBC/BMP Laboratory Tests 08/20/19 00:10 08/20/19 06:00 FSBS Laboratory Tests Test 08/20/19 11:32 Range/Units Bedside Glucose (Misc Panel) 181 83-110 MG/DL Discharge Medications Scheduled Aspirin (Aspirin EC) 81 Mg Tab, 81 MG PO QPM, (Reported) Atorvastatin Calcium (Atorvastatin Calcium) 10 Mg Tablet, 10 MG PO QPM, (Reported) Benazepril HCl (Benazepril HCl) 5 Mg Tab, 2.5 MG PO DAILY, (Reported) Cholecalciferol (Vitamin D3) (Vitamin D3) 1,000 Unit Capsule, 1,000 UNIT PO DAILY, (Reported) Clopidogrel Bisulfate (Clopidogrel) 75 Mg Tablet, 75 MG PO QPM, (Reported) TAKES AT 1300 Cyanocobalamin (Vitamin B-12) (Vitamin B-12) 100 Mcg Tablet, 100 MCG PO DAILY, (Reported) Famotidine (Famotidine) 10 Mg Tab, 40 MG PO QPM, (Reported) Gabapentin (Gabapentin) 100 Mg Cap, 100 MG PO BID, (Reported) Glipizide (Glipizide ER) 5 Mg Tab, 5 MG PO QAM, (Reported) Glipizide (Glipizide ER) 2.5 Mg Tab, 2.5 MG PO QHS, (Reported) Insulin Glargine (Lantus) 1 Units/0.01 Ml Susp, 32 UNITS SC QHS, (Reported) Lactobacillus Acidophilus (Probiotic) 1 Each Capsule, 1 CAP PO BID, (Reported) Magnesium Oxide (Magnesium Oxide) 500 Mg Tablet, 500 MG PO QPM, (Reported) Nicotine (Nicotine Patch) 14 Mg Patch.td24, 1 PATCH TD DAILY [place]-3 Fatty Acids/Fish Oil (Fish Oil 1,000 mg Capsule) 1 Each Capsule, 1,000 MG PO DAILY, (Reported) Polyethylene Glycol 3350 (Polyethylene Glycol 3350) 17 Gm Powd.pack, 1 PKT PO DAILY Sennosides/Docusate Sodium (Senokot-S Tablet) 1 Each Tablet, 1 TAB PO BID Sertraline Hcl (Zoloft) 25 Mg Tab, 25 MG PO DAILY, (Reported) Ubidecarenone (Co Q10) 200 Mg Capsule, 200 MG PO QPM, (Reported) Allergies Coded Allergies: Crab (Verified Allergy, Severe, swelling, 09/21/18) Mushroom (Verified Allergy, Severe, swelling, 09/21/18) codeine (Verified Allergy, Severe, SWELLING, 08/20/19) DANIEL CALLEJAS MD Aug 20, 2019 15:24
[2019-08-20] MEDS ORDERED: LEVEMIR (INSULIN DETEMIR) 1 UNITS/0.01ML SC SCH ×2 (21:00)
[2019-08-20] MEDS ORDERED: ATORVASTATIN 10 MG TAB PO SCH (21:00)
[2019-08-20] MEDS ORDERED: ASPIRIN 81 MG ENTERIC TAB PO SCH (21:00)
== END 2019-08-20 16:38 | disposition home or self-care (01) | DRG 390 ==
LOC: M MSPAV 23:50
PROVIDERS: ADMIT Internal Medicine; ATTEND General Practice
DX: K56.51 Intestinal adhesions [bands], with partial obstruction (principal); E11.40 Type 2 diabetes mellitus with diabetic neuropathy, unspecified; K59.09 Other constipation; K21.9 Gastro-esophageal reflux disease without esophagitis; M81.0 Age-related osteoporosis without current pathological fracture; F17.200 Nicotine dependence, unspecified, uncomplicated; E78.5 Hyperlipidemia, unspecified; I10 Essential (primary) hypertension; Z79.82 Long term (current) use of aspirin; Z79.84 Long term (current) use of oral hypoglycemic drugs; Z79.899 Other long term (current) drug therapy; Z88.5 Allergy status to narcotic agent; Z91.013 Allergy to seafood; Z91.018 Allergy to other foods; Z90.49 Acquired absence of other specified parts of digestive tract

== ENCOUNTER → 2019-09-04 | Outpatient (CLI) | payer MEDICARE ==
[~2019-09-04] MED LIST changes: +ATOR1TAB19 PO; +B-12100T2 PO; +CLOP75TA2 PO; +COQ1200C3 PO; +FISH1000 PO; +MAGN500T12 PO; +NICO14PA TD; +PEG1POW PO; +PROBCAP14 PO; +SENO8.6T10 PO; +VITA100054 PO
--- NOTE | 2019-09-04 15:19 | REP ---
Bilateral arterial upper extremity Doppler ultrasound: History: Atherosclerosis of the [place] arteries. Right upper arm pain. Findings: Relatively normal triphasic and biphasic arterial Doppler waveforms are noted throughout the left upper extremity. Monophasic waveforms are noted in the right upper extremity arteries. Right vertebral artery shows reversal of flow. 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 Right upper extremity velocity chart: Subclavian artery 104 cm/S Vertebral artery 119 reversed Subclavian mid 95 cm/S Subclavian distal 62 Axillary 54 Proximal brachial 69 Mid brachial 76 Distal brachial 77 Proximal radial 69 Distal radial 68 Proximal ulnar 81 Distal ulnar 61 Left upper extremity velocity chart: Proximal subclavian 174 cm/S Vertebral 84 Mid subclavian 179 Distal subclavian 97 Axillary 115 Proximal brachial 136 Mid brachial 150 Distal brachial 141 Proximal radial 128 Distal radial 116 Proximal ulnar 93 Distal ulnar 56 Electronically Signed by Aris Davison MD 09/04/2019 03:10 P
== END ==
LOC: M RAD 13:02
PROVIDERS: ATTEND Physician Assistant
DX: I70.208 Unspecified atherosclerosis of native arteries of extremities, other extremity (principal); M79.621 Pain in right upper arm

== ENCOUNTER → 2019-10-11 | Outpatient (CLI) | payer MEDICARE ==
[~2019-10-11] MED LIST changes: +ACETAMINOPHEN 325 MG TAB As Ordered ONE; +ACETAMINOPHEN TAB 650MG DOSE (2X325MG) PO SCH; +CLOPIDOGREL 75 MG TAB As Ordered ONE; +CLOPIDOGREL 75 MG TAB PO ONE; +HEPARIN SOD (PORCINE) 5000UNITS/ML VIAL (J1644 PER 1000UNITS) As Ordered ONE; +ISOVUE-300 61% 50ML VIAL As Ordered ONE; +LIDOCAINE 1% MDV 20ML VIAL As Ordered ONE; +LIDOCAINE 1% SDV 30ML VIAL As Ordered ONE; +LIDOCAINE 2% 100MG/5ML SDV (FOR ANES.) As Ordered ONE; +LIDOCAINE W/EPINEPHRINE 1% 20ML VIAL As Ordered ONE; +MIDAZOLAM INJ 2MG/2ML VIAL (J2250 PER 1MG) As Ordered ONE; +NS 1,000 ML IV SCH; +OXYC1TAB23 PO; +PHENYLephrine HCL 500 MCG/5 ML (100MCG/ML) SYRINGE (J2370) As Ordered ONE; +ceFAZolin 1GM VIAL (J0690 PER 500MG) As Ordered ONE; +ceFAZolin 2 GM/D5W 50 ML IV BAG (J0690 PER 500MG) As Ordered ONE; +ePHEDrine SULFATE 25 MG/5 ML(5MG/ML) SYRINGE As Ordered ONE; +fentaNYL 100 MCG/2 ML INJECTION (J3010) As Ordered ONE; +propofoL 500 MG/50 ML VIAL As Ordered ONE
[2019-10-11 09:10] LABS: HEMATOCRIT 37.3 % (36.0-47.0); HEMOGLOBIN 12.7 g/dl (12.0-15.5); MEAN CORPUSCULAR HEMOGLOBIN 31.6 pg (27.0-33.0); MEAN CORPUSCULAR VOLUME 92.8 fl (80.0-96.0); PLATELET COUNT, AUTOMATED 293 10^3/uL (150-450); RED BLOOD COUNT 4.02 10^6/uL (4.00-5.40); WHITE BLOOD COUNT 8.4 10^3/uL (4.0-10.0)
[2019-10-11 09:30] LABS: CALCIUM LEVEL 8.6 MG/DL (8.8-10.2); CREATININE FOR GFR 1.1 MG/DL (0.55-1.30); GLOMERULAR FILTRATION RATE 51.1 (>39); POTASSIUM SERUM 4.6 MEQ/L (3.5-5.1)
--- NOTE | 2019-10-11 11:51 | ROOPDOC ---
[facility] Report Of Operation Report of Operation DATE OF PROCEDURE: 10/11/19 PREPROCEDURE DIAGNOSES: Atherosclerosis the [place] vessels with claudication and worsening pain and numbness right upper extremity POSTPROCEDURE DIAGNOSES: Same PROCEDURE: 1. Ultrasound-guided access right brachial artery 2. Selection of right subclavian, innominate, and aortic arch with arteriograms and oblique views of the right innominate, carotid artery, and subclavian artery. 3. Angioplasty of the right subclavian artery with a 5 x 100 and 7 x 100 Naoma balloons 4. Completion arteriogram 5. Cutdown right brachial artery with direct repair of arteriotomy SURGEON: Rob Carnes MD ANESTHESIA: Local anesthesia 8 mL lidocaine, 3 mL lidocaine with epinephrine. Moderate intravenous conscious sedation was supervised by Dr. Carnes. The patient was independent only monitored by registered nurse assigned to the Department of radiology using automated blood pressure, EKG, and pulse oximetry. The detailed sedation record is permanently stored in the hospital information system. The following is the presedation record: Start time 10:03, stop time 11:15, Versed 3 mg IV, fentanyl 150 g IV, heparin 3000 units IV, Ancef 1 g IV. INDICATION FOR PROCEDURE: This is a very pleasant 78-year-old patient with severe atherosclerosis in the [place] vessels and suspicion of right subclavian stenosis due to retrograde flow through the vertebral artery suggesting subclavian steal. The patient does have greater than 20 mmHg difference between the right upper extremity and left upper extremity systolic blood pressures. She also complains of claudication with minimal use of her right arm, and fairly consistent numbness and tingling of her hand. We discussed the risks benefits alternatives to a right subclavian arteriogram and potential intervention. We did discuss that with the right subclavian, our intervention depends on preservation of flow to the carotid artery and minimalization of risk for embolic stroke during intervention. However, if we are able to safely improve flow with angioplasty and/or stenting, we will do that on this procedure. Patient was extensively counseled and all questions were answered. Informed consent was obtained. INTERPRETATION: 1. The patient has a widely patent innominate and common carotid artery on the right, the subclavian artery appears to have a corkscrew wrap around the carotid, with bulky near occlusive calcified plaque at its origin extending into the innominate, with very little antegrade flow from the innominate to the subclavian vessel. There is retrograde flow through the vertebral artery into the subclavian. 2. After crossing the near occlusion at the origin of the right subclavian, we did see improvement in flow with sequential angioplasty with a 5 x 100 and 7 x 100 Naoma balloons. No embolization, extravasation, or dissections were noted. REPORT OF OPERATION: Patient was brought to the angiographic suite in stable condition. Her right upper extremity was prepped and draped in sterile fashion. A timeout was performed. Sedation and antibiotics were given without complication. Ultrasound was used to guide access to the brachial artery with a microneedle and a wire was passed through this access under fluoroscopic guidance. A 4 Sinhala sheath was placed and flushed with saline. Through this access, a Glidewire and a glide cath were advanced towards the proximal subclavian artery under fluoroscopic guidance. Initially, we could not navigate the wire or the catheter into the innominate artery. Initial arteriograms showed bulky near occlusive calcified plaque. Eventually, we were able to navigate the wire in the corkscrew fashion around the carotid into the innominate and into the descending thoracic aorta. We exchange the sheath for a 5 [place] 45 cm destination sheath and flushed the sheath with saline. A pigtail catheter was advanced into the aortic arch and many oblique views of the right subclavian were obtained in order to try to get a view the origin of the right subclavian from the origin of the common carotid on the right. This proved very challenging due to the corkscrew nature of the subclavian vessel. Eventually images were obtained that revealed it would be very challenging to stent the right subclavian vein without possibly embolizing to the carotid which could result stroke, or encouraging on flow into the common carotid. Therefore, we luc ected a 5 x 100 Naoma balloon to predilate the vessel due to the extremely tight stenosis. Once this predilation was performed, we exchange for a 7 x 100 Naoma balloon and a three-minute inflation was performed. Following this, there was a much improve flow through the subclavian artery and a bounding pulses at the radial artery. Ideally, we would like to stent this as well to maintain patency, but I feel this is a bit risky in this patient due to her anatomy and the bulky calcified nature of her plaque. This then concluded our procedure. We states that sheath over the wire for short 5 Sinhala sheath and flushed the sheath with saline. Local anesthesia was administered to the skin and subcutaneous tissue over the antecubital crease near the sheath. A [place]ev[place] sverse incision was made in compassing the skin access site of the sheath. We then carefully dissected down through the soft tissue to the brachial artery. It was very superficial. Proximal and distal control were obtained with bulldog clamps the sheath was removed. The artery was irrigated and 5-0 Prolene suture was used to primarily close the arteriotomy. Before restoring flow we flushed the inflow and outflow and did not note any thrombosis. Again we irrigated with heparinized saline and the arteriotomy was hemostatic securing her suture. Flow was still excellent at the radial artery. Ultrasound was used to examine the brachial artery and radial and ulnar arteries. There was no thrombus noted in either, and good pulsatility was noted on ultrasound. We then irrigated the tissue with saline and approximate the deep tissue with a running Vicryl suture and interrupted deep dermal Vicryl sutures were used to approximate the skin and the skin was closed with a running subcuticular Monocryl suture. Mastisol and S [place]-Strips replace the length of the wound and sterile dressings were applied. The patient tolerated the procedure and the sedation well and was taken to recovery in stable condition. ESTIMATED BLOOD LOSS: Approximately 2 mL. COMPLICATIONS: None. PLAN: The angioplasty we did today should improve flow to the right upper extremity, but it certainly is more likely to remain patent with stenting. Ideally, we would be able to stent the stenosis at the origin of the right subclavian, but due to the bulky calcified nature of the plaque, its proximity to the origin of the carotid, and due to the tortuosity of the subclavian, I believe the stent may be too high risk for embolization or may cause vascular compromise to the carotid. Since the patient has more than adequate perfusion from collateral circulation even with the subclavian occlusion, I do not think it is worthwhile to risk this. We certainly would not want to cause a stroke. Angioplasty alone will be helpful, at least for a period of time. The patient and I had a lengthy discussion about smoking cessation. If she does not quit smoking, it is likely that the stenosis will recur quickly. She has been extensively counseled of the importance of smoking cessation.The patient can resume her home diet medications. We will give her a dose of Plavix in recovery and she can resume her home Plavix tomorrow. We would like her to try to keep the Steri-Strips intact on her right arm antecubital incision for 7 days to help with healing. The Tegaderm and gauze over this can be removed at any time. It is okay to shower, but keep the Steri-Strips dry and pat them dry after the shower. No tub baths until the incision is completely healed, and we prefer no tub baths for at least 14 days. No lifting greater than 5 pounds with the right arm no strenuous exercise for 1 week until incision is completely healed. ROB CARNES MD Oct 11, 2019 11:51
--- NOTE | 2019-10-11 15:03 | IPNPDOC ---
Date Seen The patient was seen on 10/11/19. Progress Note Patient seen and examined. Postprocedure, she developed an expanding hematoma in the right bicep, likely brachial sheath hematoma. The reason we did the cut down and arterial repair was to prevent this exact situation, however we gave Plavix postprocedure which can make her more susceptible to hematoma. I discussed the risks benefits and alternatives to an evacuation of the hematoma and possible new closure of the arteriotomy if necessary or ligation of any small arteries or veins that might be bleeding. The patient was agreeable to proceed. Informed consent was obtained. Brachial sheath hematomas can be very problematic and painful, and this is not something that we can wait to repair, nor is it something that we could see how she does overnight, and therefore we will proceed very urgently to the OR. The patient did have a piece of toast and coffee postprocedure, but otherwise has been nothing by mouth all day. We will try to do the procedure with light sedation if possible. She already has an incision from the previous cut down, so hopefully with local anesthesia will be able to do the hematoma evacuation her. The artery if necessary without much anesthesia. The patient is agreeable to this plan we will proceed directly to the OR. VS, I&O, 24H, Fishbone Vital Signs/I&O Vital Signs Date Time Temp Pulse Resp B/P (MAP) Pulse Ox O2 Delivery O2 Flow Rate FiO2 10/11/19 12:21 66 18 100 Room Air 10/11/19 11:30 2 10/11/19 08:55 98.4 Laboratory Data 24H LABS Laboratory Tests 2 10/11/19 08:17: Nucleated Red Blood Cells % (auto) 0.0, Anion Gap 4L, Glomerular Filtration Rate 51.1, Calcium Level 8.6L CBC/BMP Laboratory Tests 10/11/19 08:17 ROB MAGALLANES MD Oct 11, 2019 15:03
--- NOTE | 2019-10-11 16:27 | ROOPDOC ---
[facility] Report Of Operation Report of Operation DATE OF PROCEDURE: 10/11/19 PREPROCEDURE DIAGNOSES: Right upper extremity hematoma status post right upper extremity endovascular intervention POSTPROCEDURE DIAGNOSES: Same PROCEDURE: 1. Evacuation hematoma right upper extremity 2. Clip small branch of brachial artery 2 cm proximal to arteriotomy SURGEON: Rob Carnes MD ANESTHESIA: Local anesthesia and monitored anesthesia care INDICATION FOR PROCEDURE: This is a very pleasant 78-year-old patient who underwent a right subclavian arteriogram and angioplasty today through the brachial artery access. Following the procedure, the patient had a cutdown over the brachial artery and direct repair of the arteriotomy upon sheath removal. Initially, good hemostasis was noted and the patient did very well, but after she received Plavix in recovery, and moved around a bit in the bed, she noted swelling in her arm and bruising near the incision. I felt the safest thing to do is bring the patient to the OR and evacuated the hematoma and establish hemostasis for whatever we found bleeding. She did have a piece of toast and coffee postprocedure, so we will try to do this with local and is minimal anesthesia as possible. Risks benefits and alternatives were explained to the patient and she is agreeable to proceed. Informed consent was obtained. FINDINGS: 1. Proximally 150 mL of fresh clot and blood was evacuated upon opening the previous cutdown incision in the antecubital crease. 2. Brachial arteriotomy from 5 Lebanese sheath was hemostatic with primary repair was intact. 3. There was a very small branch, proximal mowing 1 mm, on the lateral aspect of the brachial artery 2 cm proximal to the arteriotomy that was actively bleeding and was successfully ligated with clip. 4. Mild diffuse oozing was noted in the soft tissue and muscle fascial planes but no significant bleeding noted. REPORT OF OPERATION: The patient was brought to the OR urgently in stable condition. Her right upper extremity was prepped and draped in a sterile fashion. Sedation and antibiotics were administered without complication. A timeout was performed. Local anesthesia was administered to the skin and subcutaneous tissue around the incision. The sutures are removed from the incision and the skin incision was extended healing laterally a few centimeters to allow better exposure to evacuate the hematoma. We then opened the deeper fascial sutures and evacuated copious amounts of hematoma and fresh blood, and I estimate this to be between 100- 150 mL. We were able to visualize the brachial artery, and the arteriotomy closure was intact no bleeding was noted from that site. However, we did notice blood trickling down fairly rapidly from just proximal to this. Upon retraction exposure more the vessel, we found a very small branch that was bleeding briskly. I suspect that when I placed the bulldog clamp on the brachial artery to do the primary closure of the arteriotomy, that branch may have been inadvertently disrupted. Unfortunately, no bleeding was noted during the procedure so I did not identify this as an issue during her initial procedure. Likely, when she received the Plavix, and when she was moving around a bit more, it began bleeding. A clip was placed on the artery. After searching a bit, I did identify what I think was the other side of that artery although this just had trickle flow. This was also clipped. We irrigated with copious amounts of saline and evacuated as much of the clot and blood as we could with suction. We also rolled up a towel and rolled this from the shoulder down over the bicep to our incision to try to evacuate is much clot as we could. We irrigated again with saline and then the deep tissues were approximated with running Vicryl suture. Superficial fascia was closed with running Vicryl suture. The deep dermal layer was approximated with interrupted Vicryl sutures and the skin was closed with a running subcuticular Monocryl suture. Steri-Strips and Mastisol were placed the length of the wound. A dry gauze and Tegaderm were placed as a final sterile dressing. We then wrapped the patient's arm from the hand to the armpit with a 4 inch Hua wrap to provide a bit of additional compression. The patient was then allowed to awaken from her leg anesthesia and was taken to recovery in stable condition. She tolerated the procedure and the anesthesia well. ESTIMATED BLOOD LOSS: Approximately 25 mL new blood loss, 150 mL fresh hematoma evacuated COMPLICATIONS: None. PLAN: Our plan is for the patient to discharge home this evening. I have evaluated her arm prior to discharge to make sure there is no new signs of bleeding or hematoma reaccumulation. We would like her to keep the Hua wrap and sling intact for 24 hours to provide compression to prevent recurrent hematoma from soft tissue expansion from previous bleed, and minimize movements in the right arm. After 24 hours, it is okay to remove the sling and Hua wrap if desired or reapply it daily if it improves her symptoms. Tegaderm and gauze should remain in place for 48 hours. Steri-Strips should remain in place for 7- 10 days to help with healing. No strenuous exercise or lifting greater than 5 pounds for 2 weeks with right arm. We again discussed smoking cessation and the importance of avoiding nicotine. The patient says she is willing to try to cut back, but she is not sure she can quit. We will continue to encourage her. We appreciate the opportunity to participate in the care of this patient. ROB CARNES MD Oct 11, 2019 16:27
[2019-10-11 17:50] VITALS: BP 165/75
== END ==
LOC: M IRPRO 08:35
PROVIDERS: ATTEND Surgery Vascular Surgery
DX: I70.8 Atherosclerosis of other arteries (principal); I10 Essential (primary) hypertension; E11.51 Type 2 diabetes mellitus with diabetic peripheral angiopathy without gangrene; K21.9 Gastro-esophageal reflux disease without esophagitis; M54.5 Low back pain; M81.0 Age-related osteoporosis without current pathological fracture; K59.00 Constipation, unspecified; F17.210 Nicotine dependence, cigarettes, uncomplicated; Z79.899 Other long term (current) drug therapy; Z79.82 Long term (current) use of aspirin; Z88.5 Allergy status to narcotic agent; Z91.013 Allergy to seafood; Z91.018 Allergy to other foods
CPT/HCPCS: 10140; 35206; 36222; 37246; 80048; 85027; 99152; 99153; C1725; C1769; C1887; C1894; J0690; J1644; J2250; J2370; J3010; Q9967

== ENCOUNTER → 2019-11-20 | Outpatient (CLI) | payer MEDICARE ==
[~2019-11-20] MED LIST changes: -ACETAMINOPHEN 325 MG TAB As Ordered ONE; -ACETAMINOPHEN TAB 650MG DOSE (2X325MG) PO SCH; -CLOPIDOGREL 75 MG TAB As Ordered ONE; -CLOPIDOGREL 75 MG TAB PO ONE; -HEPARIN SOD (PORCINE) 5000UNITS/ML VIAL (J1644 PER 1000UNITS) As Ordered ONE; -ISOVUE-300 61% 50ML VIAL As Ordered ONE; -LIDOCAINE 1% MDV 20ML VIAL As Ordered ONE; -LIDOCAINE 1% SDV 30ML VIAL As Ordered ONE; -LIDOCAINE 2% 100MG/5ML SDV (FOR ANES.) As Ordered ONE; -LIDOCAINE W/EPINEPHRINE 1% 20ML VIAL As Ordered ONE; -MIDAZOLAM INJ 2MG/2ML VIAL (J2250 PER 1MG) As Ordered ONE; -NS 1,000 ML IV SCH; -PHENYLephrine HCL 500 MCG/5 ML (100MCG/ML) SYRINGE (J2370) As Ordered ONE; -ceFAZolin 1GM VIAL (J0690 PER 500MG) As Ordered ONE; -ceFAZolin 2 GM/D5W 50 ML IV BAG (J0690 PER 500MG) As Ordered ONE; -ePHEDrine SULFATE 25 MG/5 ML(5MG/ML) SYRINGE As Ordered ONE; -fentaNYL 100 MCG/2 ML INJECTION (J3010) As Ordered ONE; -propofoL 500 MG/50 ML VIAL As Ordered ONE
--- NOTE | 2019-11-20 10:45 | REP ---
REASON: Status post right subclavian angioplasty. RIGHT: ARTERY CM/S PHASICITY Vertebral artery 75.4 Antegrade flow Subclavian artery proximal 129.1 Triphasic. Subclavian distal artery 103.1 Triphasic Axillary artery 66.5 Triphasic Brachial proximal artery 104.8 Triphasic Brachial distal artery 98.2 Triphasic Radial proximal artery 77.1 Monophasic Radial distal artery 78. 9 Monophasic Ulnar proximal artery 74.1 Monophasic Ulnar distal artery 76.2 Monophasic Electronically Signed by Cesar Delacruz DO 11/20/2019 10:46 A
== END ==
LOC: M RAD 08:58
PROVIDERS: ATTEND Physician Assistant
DX: I73.9 Peripheral vascular disease, unspecified (principal); M79.621 Pain in right upper arm; I65.23 Occlusion and stenosis of bilateral carotid arteries

== ENCOUNTER → 2019-12-29 | Outpatient (CLI) | payer MEDICARE ==
[~2019-12-29] MED LIST changes: +PANT40TA29 PO; -PANT40TA3 PO
--- NOTE | 2019-12-29 13:13 | REP ---
DUPLEX CAROTID SONOGRAPHY: HISTORY: Occlusion and stenosis of bilateral carotid arteries. COMPARISON STUDY: July 25, 2019. FINDINGS: Antegrade flow was observed in both vertebral arteries. I note that on the prior study, reverse flow was felt to be observed in the right vertebral. RIGHT CAROTID: Common carotid artery on the right is unremarkable except for diffuse intimal thickening. There is moderate plaquing mixed in type in the bulb and proximal ICA on the right side. Color flow and spectral Doppler interrogation are unremarkable on the right. Velocity Chart Right Carotid: PSV EDV Right CCA 104 cm/s Right ICA 89 cm/s 17 cm/s Right ECA 148 cm/s Right ICA/CCA ratio normal 0.9 IMPRESSION: Less than 50% category narrowing in the right ICA by Doppler criteria. Moderate plaquing. Antegrade flow is observed today in the right vertebral. LEFT CAROTID: Left common carotid artery shows diffuse intimal thickening. There is moderate diffuse plaquing in the bulb and proximal ICA on the left side. Stenotic elevated systolic velocities are observed in the ICA. Peak systolic velocity in the left ICA is slightly increased from the prior study. Mildly increased left ICA EDV is again noted unchanged. Velocity Chart Left Carotid: PSV EDV Left CCA 85 cm/s Left ICA 312 cm/s 44 cm/s Left ECA 163 cm/s Left ICA/CCA ratio elevated 3.6. IMPRESSION: Findings consistent with greater than 70% stenosis in the left ICA. Peak systolic velocity in the left ICA is slightly increased compared to the prior study. Electronically Signed by Aris aDvison MD 12/29/2019 01:53 P
== END ==
LOC: M RAD 10:01
PROVIDERS: ATTEND Physician Assistant
DX: I65.23 Occlusion and stenosis of bilateral carotid arteries (principal)

== ENCOUNTER → 2020-10-04 | Outpatient (CLI) | payer MEDICARE ==
[~2020-10-04] MED LIST changes: -PEG1POW PO; +POLY17PO18 PO
--- NOTE | 2020-10-04 11:11 | REP ---
INDICATION: OCCLUSION / STENOSIS OF DAISY CAROTID ARTERIES COMPARISON: 12/29/2019. TECHNIQUE: Real-time ultrasound evaluation and duplex Doppler interrogation of the extracranial carotid vasculature is performed. FINDINGS: There is moderate calcific plaquing and narrowing in both carotid bulbs extending into the internal and external carotid arteries. Luminal narrowing is less than 50%. There is no evidence of hemodynamically significant stenosis of either internal carotid artery. Normal flow velocities are seen. The vertebral arteries demonstrate normal direction of flow. RIGHT LEFT Peak systolic velocity ICA 110 cm/s 97 cm/s End diastolic velocity ICA 32 cm/s 21 cm/s Peak systolic velocity CCA 109 cm/s 72cm/s Peak systolic velocity ECA 169 cm/s 144 cm/s ICA/CCA ratio 1.01 2.19 IMPRESSION: Bilateral luminal narrowing of the internal carotid arteries less than 50%. No evidence of hemodynamically significant stenosis. <Electronically signed by Stefan Rodriguez > 10/04/20 1109
== END ==
LOC: M RAD 10:02
PROVIDERS: ATTEND Physician Assistant
DX: I65.23 Occlusion and stenosis of bilateral carotid arteries (principal)

== ENCOUNTER → 2020-10-08 | Outpatient (REF) | payer MEDICARE ==
[2020-10-08 18:47] LABS: APPEARANCE, URINE CLEAR (CLEAR); BACTERIA, URINE AUTO NEGATIVE (NEGATIVE); BILIRUBIN, URINE AUTO NEGATIVE (NEGATIVE); BLOOD, URINE BLOOD NEGATIVE (NEGATIVE); COLOR, URINE STRAW (YELLOW); GLUCOSE, URINE (UA) AUTO NEGATIVE (NEGATIVE); KETONE, URINE AUTO NEGATIVE (NEGATIVE); LEUKOCYTE ESTERASE, URINE AUTO NEGATIVE (NEGATIVE); NITRITE, URINE AUTO NEGATIVE (NEGATIVE); PROTEIN, URINE AUTO NEGATIVE (NEGATIVE); RBC, URINE AUTO 1 /HPF (0-3); SPECIFIC GRAVITY URINE AUTO 1.004 (1.002-1.035); SQUAMOUS EPITHELIAL CELL UR AU 0 /HPF (0-6); UROBILINOGEN, URINE AUTO 0.2 mg/dL (0.0-2.0); WBC, URINE AUTO 0 /HPF (0-3)
== END ==
LOC: M SMT 16:58
PROVIDERS: ATTEND Nurse Practitioner Women's Health
DX: R31.29 Other microscopic hematuria (principal)
CPT/HCPCS: 81001; 87086; G0463

== ENCOUNTER → 2020-10-25 | Outpatient (CLI) | payer MEDICARE ==
[~2020-10-25] MED LIST changes: +ISOVUE-370 76% 100ML VIAL As Ordered ONE
--- NOTE | 2020-10-25 09:29 | REP ---
INDICATION: MICROSCOPIC HEMATURIA. COMPARISON: CT angio abdomen 10/05/2016. No exact priors for comparison. TECHNIQUE: Before and after intravenous contrast. 100 cc Isovue 370. FINDINGS: The lung bases are stable The pre contrast enhanced portion examination shows no evidence of nephroureterolithiasis. Pelvic phleboliths are noted status quo. Contrast-enhanced portion examination shows the liver, spleen, pancreas, adrenal glands, and kidneys to be centrally unchanged. Multiple benign splenic calcifications are again noted status quo. Two sub cm sized focal areas of decreased density are seen in the right renal cortex. These are stable and show no evidence of contrast enhancement whatsoever. Arising from the superior pole of the left kidney there is an approximately 5.7 x 5.2 x 5.3 cm sized smoothly marginated low-density structure which has water density Hounsfield unit readings and shows no evidence of contrast enhancement or septations. There is no significant change in appearance of the abdominal aorta or para-aortic regions. There is no evidence of free fluid or free air. There is no evidence of adenopathy. Delayed imaging throughout the examination shows complete opacification of the right renal collecting system with scattered areas absent of contrast opacification in the left renal collecting system. The opacified portion of the urinary bladder shows no evidence of a definite filling defect. Bone window technique throughout the examination shows and L1 grade 1 irregular superior end plate compression deformity which has developed since the last exam. IMPRESSION: 1. Bilateral Bosniak class 1 renal cysts as described above. 2. Incomplete opacification of the left renal collecting system likely secondary to normal peristaltic activity. 3. L1 compression fracture as described above. 4. Other findings as described above. <Electronically signed by Cesar Delacruz > 10/25/20 [id number]
== END ==
LOC: M RAD 08:05
PROVIDERS: ATTEND Nurse Practitioner Women's Health
DX: N28.1 Cyst of kidney, acquired (principal); R31.29 Other microscopic hematuria
CPT/HCPCS: 74178; Q9967

== ENCOUNTER 2020-12-12 10:05 | Day surgery (SDC) | payer MEDICARE ==
[~2020-12-12] VITALS: Ht 157.5 cm; Wt 57.5 kg
[~2020-12-12 10:05] MED LIST changes: -ISOVUE-370 76% 100ML VIAL As Ordered ONE; +LR 1,000 ML IV ONE; +VITAD400CA PO; +ceFAZolin SOD 2 GM in IV 1 EA IV ONE
[2020-12-12] MEDS ORDERED: ROCURONIUM BROMIDE 50 MG/5 ML VIAL As Ordered ONE (13:18)
[2020-12-12] MEDS ORDERED: ONDANSETRON 4MG/2ML VIAL As Ordered ONE (13:18)
[2020-12-12] MEDS ORDERED: propofoL 200 MG/20 ML VIAL As Ordered ONE (13:18)
[2020-12-12] MEDS ORDERED: fentaNYL 100 MCG/2 ML INJECTION (J3010) As Ordered ONE (13:18)
[2020-12-12] MEDS ORDERED: dexameTHASONE 4 MG/ML 1ML VIAL (J1100 PER 1MG) As Ordered ONE (13:18)
[2020-12-12] MEDS ORDERED: LIDOCAINE 2% 100MG/5ML SDV (FOR ANES.) As Ordered ONE (13:18)
[2020-12-12] MEDS ORDERED: LABETALOL 100MG/20ML VIAL As Ordered ONE (13:43)
[2020-12-12] MEDS ORDERED: ePHEDrine SULFATE 25 MG/5 ML(5MG/ML) SYRINGE As Ordered ONE (13:55)
[2020-12-12] MEDS ORDERED: SUGAMMADEX SODIUM 500 MG/5 ML VIAL (BRIDION) As Ordered ONE (13:55)
[2020-12-12] MEDS ORDERED: hydrALAZINE 20MG/ML 1ML VIAL (J0360 PER 20MG) As Ordered ONE (13:58)
[2020-12-12] MEDS ORDERED: ONDANSETRON 4MG/2ML VIAL IV PRN (14:40)
[2020-12-12] MEDS ORDERED: PERCOCET 5MG/325MG TAB PO PRN (14:40)
[2020-12-12] MEDS ORDERED: MEPERIDINE INJ 25 MG/ML VIAL (J2175) IV PRN (14:40)
[2020-12-12] MEDS ORDERED: ACETAMINOPHEN TAB 650MG DOSE (2X325MG) PO PRN (15:00)
[2020-12-12] MEDS ORDERED: oxyBUTYnin 5 MG TAB PO ONE (15:00)
[2020-12-12] MEDS: fentaNYL 100 MCG/2 ML INJECTION (J3010) IV PRN ×2 (15:04→15:22)
--- NOTE | 2020-12-12 15:10 | RO ---
OPERATIVE NOTE DATE OF OPERATION: 12/12/2020 PREOPERATIVE DIAGNOSIS: Bladder tumors. POSTOPERATIVE DIAGNOSIS: Bladder tumors. PROCEDURE: Cystoscopy, transurethral resection of bladder tumors (between 2 and 5 cm), examination under anesthesia. SURGEON: Aniceto Granda MD [employer]ER: None. ANESTHESIA: General. OPERATIVE INDICATIONS: This is an 80-year-old female who was found to have several lesions in the upper and left side of her bladder concerning for bladder tumors. She is brought to the operating room today for treatment. DESCRIPTION OF PROCEDURE: The patient was brought to the operating room and general anesthesia was induced. Prophylactic antibiotics were infused. She was placed in the dorsal lithotomy position and prepped and draped in the usual sterile fashion. At this point bimanual pelvic exam under anesthesia was performed. It was negative for palpable bladder masses. The bladder was freely mobile. At this point a resectoscope was inserted in the urethral meatus and advanced into the bladder. The bladder was thoroughly examined. There were a few small papillary-appearing tumors on the anterior wall as well as the left lateral wall. The largest of these tumors were resected using a bipolar loop and then the specimen was sent off for pathologic analysis. Any remaining smaller tumors were fulgurated using coagulating current. The base of resection was also cauterized using coagulating current. Once satisfied with hemostasis I confirmed that all residual tumors had been removed. The resectoscope was then removed. I then inserted an 18-Faroese Bui catheter into the bladder and the balloon was filled with 10 mL of sterile water. The catheter was connected to gravity drainage and this marked the conclusion of the procedure. The patient was taken out of the dorsal lithotomy position, awakened from anesthesia and transported to recovery room in stable condition. ESTIMATED BLOOD LOSS: 5 mL. COMPLICATIONS: None. SPECIMEN: Bladder tumors. PLAN: The patient will follow up in urology clinic in approximately one week for catheter removal and to discuss her pathology results. SOFYA
[2020-12-12 16:45] VITALS: BP 140/62
== END 2020-12-12 16:50 | disposition home or self-care (01) ==
LOC: M SDC 10:05
PROVIDERS: ATTEND Urology
DX: C67.9 Malignant neoplasm of bladder, unspecified (principal); I10 Essential (primary) hypertension; E78.5 Hyperlipidemia, unspecified; E11.9 Type 2 diabetes mellitus without complications; K21.9 Gastro-esophageal reflux disease without esophagitis; K57.90 Diverticulosis of intestine, part unspecified, without perforation or abscess without bleeding; J44.9 Chronic obstructive pulmonary disease, unspecified; Z79.82 Long term (current) use of aspirin; Z79.899 Other long term (current) drug therapy; Z79.84 Long term (current) use of oral hypoglycemic drugs; Z88.5 Allergy status to narcotic agent; Z91.013 Allergy to seafood; Z91.018 Allergy to other foods
CPT/HCPCS: 52235; 88305; 88341; 88342; J0360; J0690; J1100; J2405; J3010

== ENCOUNTER → 2021-04-07 | Outpatient (REF) | payer MEDICARE ==
[~2021-04-07] MED LIST changes: +FAMO10TA50 PO; -FAMO1TAB25 PO; -LR 1,000 ML IV ONE; -ceFAZolin SOD 2 GM in IV 1 EA IV ONE
== END ==
LOC: M SMT 13:15
PROVIDERS: ATTEND Urology
DX: C67.9 Malignant neoplasm of bladder, unspecified (principal)

== ENCOUNTER → 2021-04-17 | Outpatient (CLI) | payer MEDICARE ==
[~2021-04-17] MED LIST changes: +ISOVUE-370 76% 100ML VIAL As Ordered ONE
--- NOTE | 2021-04-17 10:44 | REP ---
INDICATION: BLADDER CA. COMPARISON: 10/25/2020 also before and after contrast TECHNIQUE: Standard helical technique before and after the intravenous administration of 100 cc Isovue 370 FINDINGS: There is an 8 mm sized focal opacity in the inferior lingula. This represents a change from the prior exam.. The pre contrast enhanced images again show a patent splenic densities to be within normal limits. The 5.7 cm sized left renal cyst is unchanged. There are no nephroliths are ureteroliths. There are no urinary bladder calcifications. There are bilateral pelvic phleboliths status quo. The contrast-enhanced portion examination shows no significant change in appearance of the large left renal cyst. There are 2 unchanged right renal cortical cysts. There is no measurable contrast-enhancement involving any of the aforementioned cysts. There are no enhancing renal abnormalities. The liver, spleen, pancreas, and adrenal glands are again seen to be within normal limits. There is no change in the abdominal aorta or para-regions. There is no free fluid or free air. There is no change in appearance of the urinary bladder. There is no change in appearance of the bowel loops or the mesenteries. Bone window technique throughout the examination shows no significant change in appearance of the osseous structures. Delayed imaging shows no abnormal filling defects in the opacified portion of the urinary bladder. MIP reformatted 3D imaging of the renal collecting system again shows incomplete opacification bilaterally. This is likely secondary to normal peristaltic ureteral activity as on the prior exam. IMPRESSION: The been no significant change compared to the prior exam with findings as described above. <Electronically signed by Cesar Delacruz > 04/17/21 [id number]
== END ==
LOC: M RAD 09:09
PROVIDERS: ATTEND Urology
DX: C67.9 Malignant neoplasm of bladder, unspecified (principal); N28.1 Cyst of kidney, acquired
CPT/HCPCS: 74178; Q9967

== ENCOUNTER → 2021-04-28 | Outpatient (CLI) | payer MEDICARE ==
[~2021-04-28] MED LIST changes: -ISOVUE-370 76% 100ML VIAL As Ordered ONE
--- NOTE | 2021-04-28 17:13 | REP ---
INDICATION: LOW BACK PAIN. COMPARISON: None. TECHNIQUE: Three views FINDINGS: Small marginal osteophytes are seen bilaterally. There is universal severe L5-S1 disc space narrowing. There is a grade 1 L4 upon L5 spondylolisthesis. There is anterior lipping at every level. The bones are demineralized. Vertebral body height is within normal limits. Degenerative facet joint changes are seen bilaterally at every level. IMPRESSION: Chronic changes as described above <Electronically signed by Cesar Delacruz > 04/28/21 [id number]
== END ==
LOC: M SOG 13:05
PROVIDERS: ATTEND Orthopaedic Surgery
DX: M54.50 Low back pain, unspecified (principal); M43.16 Spondylolisthesis, lumbar region

== ENCOUNTER → 2021-09-16 | Outpatient (REF) | payer MEDICARE ==
[~2021-09-16] MED LIST changes: +BENA1TAB23 PO; -BENA5TA PO
== END ==
LOC: M SMT 12:59
PROVIDERS: ATTEND Urology
DX: C67.9 Malignant neoplasm of bladder, unspecified (principal)

== ENCOUNTER → 2022-02-09 | Outpatient (REF) | payer MEDICARE | LOC: M SMT 13:38 | PROVIDERS: ATTEND Urology | DX: C67.9 Malignant neoplasm of bladder, unspecified (principal) ==

== ENCOUNTER → 2022-05-12 | Outpatient (REF) | payer MEDICARE | LOC: M SMT 17:30 | PROVIDERS: ATTEND Urology | DX: C67.9 Malignant neoplasm of bladder, unspecified (principal) ==

== ENCOUNTER → 2022-05-28 | Outpatient (CLI) | payer MEDICARE ==
[~2022-05-28] MED LIST changes: +BENA10TA PO
[2022-05-28 15:06] LABS: HEMATOCRIT 41.4 % (36.0-47.0); HEMOGLOBIN 13.7 g/dl (12.0-15.5); MEAN CORPUSCULAR HEMOGLOBIN 30.7 pg (27.0-33.0); MEAN CORPUSCULAR HGB CONC 33.1 g/dl (32.0-36.5); MEAN CORPUSCULAR VOLUME 92.8 fl (80.0-96.0); PLATELET COUNT, AUTOMATED 273 10^3/uL (150-450); RED BLOOD COUNT 4.46 10^6/uL (4.00-5.40); WHITE BLOOD COUNT 9.3 10^3/uL (4.0-10.0)
[2022-05-28 16:04] LABS: CALCIUM LEVEL 9.3 MG/DL (8.3-10.6); CREATININE FOR GFR 1.21 MG/DL (0.55-1.30); GLOMERULAR FILTRATION RATE 45.5 (>32); POTASSIUM SERUM 4.9 MMOL/L (3.5-5.1)
== END ==
LOC: M RAD 13:48 → M LAB 14:31
PROVIDERS: ATTEND Urology
DX: Z01.812 Encounter for preprocedural laboratory examination (principal); C67.9 Malignant neoplasm of bladder, unspecified; N39.0 Urinary tract infection, site not specified

== ENCOUNTER → 2022-06-11 | Outpatient (CLI) | payer MEDICARE ==
[~2022-06-11] MED LIST changes: +ISOVUE-370 76% 100ML VIAL As Ordered ONE
== END ==
LOC: M RAD 14:54
PROVIDERS: ATTEND Urology
DX: C67.9 Malignant neoplasm of bladder, unspecified (principal)
CPT/HCPCS: 74178; Q9967

== ENCOUNTER 2022-06-15 09:45 | Day surgery (SDC) | payer MEDICARE ==
[~2022-06-15] VITALS: Ht 162.6 cm; Wt 54.3 kg
[~2022-06-15 09:45] MED LIST changes: -ISOVUE-370 76% 100ML VIAL As Ordered ONE; +ceFAZolin SOD 2 GM in IV 1 EA IV ONE; +mitoMYcin 40MG VIAL *UROLOGY INTRAVESIC ONE
[2022-06-15] MEDS ORDERED: LR 1,000 ML IV SCH ×2 (10:25→13:50)
[2022-06-15] MEDS ORDERED: propofoL 200 MG/20 ML VIAL As Ordered ONE (12:43)
[2022-06-15] MEDS ORDERED: LIDOCAINE 2% 100MG/5ML SDV (FOR ANES.) As Ordered ONE (12:43)
[2022-06-15] MEDS ORDERED: ROCURONIUM BROMIDE 50 MG/5 ML VIAL As Ordered ONE (12:43)
[2022-06-15] MEDS ORDERED: fentaNYL 100 MCG/2 ML INJECTION As Ordered ONE (12:43)
[2022-06-15] MEDS ORDERED: ONDANSETRON 4MG 2ML VIAL As Ordered ONE (13:44)
[2022-06-15] MEDS ORDERED: SUGAMMADEX SODIUM 500 MG/5 ML VIAL (BRIDION) As Ordered ONE (13:44)
[2022-06-15] MEDS ORDERED: KETOROLAC 60MG 2ML VIAL As Ordered ONE (13:44)
[2022-06-15] MEDS ORDERED: oxyCODONE 5MG TAB PO PRN (13:50)
[2022-06-15] MEDS ORDERED: HYDROMORPHONE HCL 0.5 MG/ 0.5 ML SYRINGE (J1170 PER 1) IV PRN (13:50)
[2022-06-15] MEDS ORDERED: ONDANSETRON 4MG 2ML VIAL IV PRN (13:50)
[2022-06-15] MEDS ORDERED: fentaNYL 100 MCG/2 ML INJECTION IV PRN (13:50)
[2022-06-15] MEDS ORDERED: ACETAMINOPHEN TAB 650MG DOSE (2X325MG) PO PRN (14:30)
[2022-06-15 15:30] VITALS: BP 125/60
== END 2022-06-15 15:49 | disposition home or self-care (01) ==
LOC: M SDC 09:45
PROVIDERS: ATTEND Urology
DX: C67.9 Malignant neoplasm of bladder, unspecified (principal); I10 Essential (primary) hypertension; E11.9 Type 2 diabetes mellitus without complications; E78.5 Hyperlipidemia, unspecified; K57.92 Diverticulitis of intestine, part unspecified, without perforation or abscess without bleeding; F17.210 Nicotine dependence, cigarettes, uncomplicated; Z79.82 Long term (current) use of aspirin; Z79.4 Long term (current) use of insulin; Z79.899 Other long term (current) drug therapy; J44.9 Chronic obstructive pulmonary disease, unspecified; K21.9 Gastro-esophageal reflux disease without esophagitis; F41.9 Anxiety disorder, unspecified; F32.A Depression, unspecified; Z91.013 Allergy to seafood; Z88.5 Allergy status to narcotic agent; Z91.018 Allergy to other foods
CPT/HCPCS: 51720; 52234; 88305; J0690; J1100; J1885; J2405; J3010; J9280

== ENCOUNTER → 2022-10-19 | Outpatient (REF) | payer MEDICARE ==
[~2022-10-19] MED LIST changes: -ceFAZolin SOD 2 GM in IV 1 EA IV ONE; -mitoMYcin 40MG VIAL *UROLOGY INTRAVESIC ONE
== END ==
LOC: M SMT 16:45
PROVIDERS: ATTEND Urology
DX: C67.9 Malignant neoplasm of bladder, unspecified (principal); F17.210 Nicotine dependence, cigarettes, uncomplicated; Z91.018 Allergy to other foods; Z91.013 Allergy to seafood; Z88.5 Allergy status to narcotic agent

== ENCOUNTER 2022-12-14 09:11 | Day surgery (SDC) | payer MEDICARE ==
[~2022-12-14] VITALS: Ht 157.5 cm; Wt 46.5 kg
[2022-12-14] MEDS ORDERED: LIDOCAINE W/EPINEPHRINE 1% 20ML VIAL XX ONE (09:55)
[2022-12-14] MEDS ORDERED: SODIUM BICARBONATE 8.4% INJ 50MEQ 50ML VIAL XX ONE (09:55)
[2022-12-14] MEDS ORDERED: LIDOCAINE 1% MDV 20ML VIAL As Ordered ONE (11:08)
[2022-12-14] MEDS ORDERED: SODIUM BICARBONATE 4.2% INJ 10ML SYRINGE As Ordered ONE (11:08)
[2022-12-14] MEDS ORDERED: BACITRACIN OINTMENT 30GM TUBE As Ordered ONE (11:08)
[2022-12-14 12:09] VITALS: BP 170/74; TEMP 97.8; O2SAT 96
== END 2022-12-14 12:36 | disposition home or self-care (01) ==
LOC: M SDC 09:11
PROVIDERS: ATTEND Orthopaedic Surgery Hand Surgery
DX: G56.01 Carpal tunnel syndrome, right upper limb (principal); K21.9 Gastro-esophageal reflux disease without esophagitis; E11.9 Type 2 diabetes mellitus without complications; I10 Essential (primary) hypertension; E78.00 Pure hypercholesterolemia, unspecified; F32.A Depression, unspecified; Z79.899 Other long term (current) drug therapy; Z79.82 Long term (current) use of aspirin; Z79.4 Long term (current) use of insulin; F17.210 Nicotine dependence, cigarettes, uncomplicated; Z88.5 Allergy status to narcotic agent; Z91.018 Allergy to other foods; Z91.013 Allergy to seafood

== ENCOUNTER → 2023-03-01 | Outpatient (REF) | payer MEDICARE | LOC: M SMT 13:21 | PROVIDERS: ATTEND Urology | DX: C67.9 Malignant neoplasm of bladder, unspecified (principal) ==

== ENCOUNTER → 2023-09-07 | Outpatient (REF) | payer MEDICARE ==
[~2023-09-07] MED LIST changes: -ASPI-161 PO; +ASPI-615 PO
== END ==
LOC: M SMT 14:10
PROVIDERS: ATTEND Urology
DX: C67.9 Malignant neoplasm of bladder, unspecified (principal)

== ENCOUNTER 2023-10-28 08:19 | Day surgery (SDC) | payer MEDICARE ==
[~2023-10-28] VITALS: Ht 162.6 cm; Wt 50.6 kg
[~2023-10-28 08:19] MED LIST changes: +MEMA7CAP PO
[2023-10-28] MEDS: LIDOCAINE 3.5 % 1ML OPHTH TOPICAL GEL OU ONE (09:03)
[2023-10-28] MEDS: OFLOXACIN 0.3 % (OCUFLOX) OPTH SOL 5ML OD ONE (09:03)
[2023-10-28] MEDS: ATROPINE SULFATE 1% OPHTH SOLN 2ML BTL OD SCH (09:03)
[2023-10-28] MEDS: TROPICAMIDE 1% OPHTH SOLN 15ML OD SCH (09:04)
[2023-10-28] MEDS: PHENYLEPHRINE 2.5% OPHTH SOL 2ML OD SCH (09:04)
[2023-10-28] MEDS: PHENYLEPHRINE 10% OPHTH SOL 5ML OD PRN (09:04)
[2023-10-28] MEDS ORDERED: MIDAZOLAM INJ 2MG/2ML VIAL As Ordered ONE (09:41)
[2023-10-28] MEDS: BSS IRRIG/VANCO(10MG)/TOBRA(5MG)/EPINEPH(1:1000-0.5CC)500ML BAG-ORONLY As Ordered ONE (09:50)
[2023-10-28] MEDS: LIDOCAINE 1% SDV 5ML VIAL As Ordered ONE (09:50)
[2023-10-28] MEDS: CEFUROXIME 1MG/0.1ML INTRACAMERAL INJ As Ordered ONE (09:59)
[2023-10-28 10:05] VITALS: BP 122/58; TEMP 97.1; O2SAT 98
== END 2023-10-28 10:30 | disposition home or self-care (01) ==
LOC: M SDC 08:19
PROVIDERS: ATTEND Ophthalmology
DX: H25.11 Age-related nuclear cataract, right eye (principal); I10 Essential (primary) hypertension; G62.9 Polyneuropathy, unspecified; E78.00 Pure hypercholesterolemia, unspecified; Z79.899 Other long term (current) drug therapy; Z79.82 Long term (current) use of aspirin; Z85.51 Personal history of malignant neoplasm of bladder; F17.210 Nicotine dependence, cigarettes, uncomplicated; K21.9 Gastro-esophageal reflux disease without esophagitis; Z92.21 Personal history of antineoplastic chemotherapy; Z88.5 Allergy status to narcotic agent; Z91.013 Allergy to seafood; Z91.018 Allergy to other foods
CPT/HCPCS: 66984; J0697; J2250; V2632

== ENCOUNTER 2023-12-04 00:32 | Inpatient (IN) | payer MEDICARE ==
[~2023-12-04] VITALS: Ht 162.6 cm; Wt 50.1 kg
[2023-12-04] VITALS (8 sets, daily range): BP systolic 121–143; BP diastolic 57–77; TEMP 97.7–98.6; O2SAT 95–99
[2023-12-04] MEDS: fentaNYL 100 MCG/2 ML INJECTION IV ONE (02:19)
[2023-12-04] MEDS: PERCOCET 5MG/325MG TAB PO ONE (02:24)
[2023-12-04 03:05] LABS: BASO % 0.3 % (0.0-1.0); EOS # 0.2 10^3/uL (0.0-0.5); EOS % 1.5 % (0.0-3.0); HEMATOCRIT 33.4 % (36.0-47.0); HEMOGLOBIN 11.7 g/dl (12.0-15.5); LYMPH # 1.6 10^3/uL (1.5-5.0); LYMPH % 13.8 % (24.0-44.0); MEAN CORPUSCULAR HEMOGLOBIN 31.8 pg (27.0-33.0); MEAN CORPUSCULAR VOLUME 90.8 fl (80.0-96.0); MONO # 0.9 10^3/uL (0.0-0.8); MONO % 7.7 % (2.0-8.0); NEUTROPHILS # 8.7 10^3/uL (1.5-8.5); NEUTROPHILS % 76.3 % (36.0-66.0); PLATELET COUNT, AUTOMATED 260 10^3/uL (150-450); RED BLOOD COUNT 3.68 10^6/uL (4.00-5.40); WHITE BLOOD COUNT 11.4 10^3/uL (4.0-10.0)
[2023-12-04] MEDS ORDERED: HOME MED LIST COMPLETE! XX SCH (03:10)
[2023-12-04 03:30] LABS: CALCIUM LEVEL 8.9 MG/DL (8.3-10.6); CREATININE FOR GFR 1.45 MG/DL (0.55-1.30); GLOMERULAR FILTRATION RATE 36.7 (>32); MAGNESIUM LEVEL 2.1 MG/DL (1.8-2.4); POTASSIUM SERUM 4.8 MMOL/L (3.5-5.1)
[2023-12-04] MEDS ORDERED: GLUCOSE 4 GM CHEW PO PRN (03:35)
[2023-12-04] MEDS ORDERED: DEXTROSE 50% 50ML SYRINGE IV PRN (03:35)
[2023-12-04] MEDS ORDERED: GLUCAGON INJ 1MG VIAL SC PRN (03:35)
[2023-12-04] MEDS: NICOTINE 7 MG/24 HR TRANSDERMAL TD ONE (04:30)
[2023-12-04] MEDS: LR 1,000 ML IV SCH ×2 (04:43→12:50)
[2023-12-04] MEDS: NS 500 ML IV ONE (04:43)
[2023-12-04] MEDS: **hydrALAZINE** 10 MG TAB PO ONE (04:43)
[2023-12-04] MEDS: PANTOPRAZOLE 40MG VIAL IV SCH (04:43)
[2023-12-04] MEDS: ACETAMINOPHEN TAB 650MG DOSE (2X325MG) PO PRN (04:59)
[2023-12-04] MEDS: INSULIN LISPRO (NovoLOG) PER UNIT SC SCH (06:00)
[2023-12-04] MEDS: SERTRALINE HCL 25 MG TABLET PO SCH (09:00)
[2023-12-04] MEDS: DOCUSATE SODIUM 100MG CAPSULE PO SCH (09:00)
[2023-12-04] MEDS: GABAPENTIN 100 MG CAP PO SCH (09:00)
[2023-12-04] MEDS ORDERED: LIDOCAINE 2% 100MG/5ML SDV (FOR ANES.) As Ordered ONE (09:02)
[2023-12-04] MEDS ORDERED: ROCURONIUM BROMIDE 50MG/5ML VIAL As Ordered ONE (09:02)
[2023-12-04] MEDS ORDERED: ONDANSETRON 4MG 2ML VIAL As Ordered ONE (09:02)
[2023-12-04] MEDS ORDERED: fentaNYL 100 MCG/2 ML INJECTION As Ordered ONE (09:02)
[2023-12-04] MEDS ORDERED: propofoL 200 MG/20 ML VIAL As Ordered ONE (09:02)
[2023-12-04] MEDS ORDERED: ACETAMINOPHEN 1000MG 100ML IV BAG As Ordered ONE (09:29)
[2023-12-04] MEDS: ceFAZolin 2 GM/D5W 50 ML IV BAG As Ordered ONE (09:44)
[2023-12-04] MEDS: TRANEXAMIC ACID 100 MG/ML 10ML VIAL As Ordered ONE (09:55)
[2023-12-04] MEDS ORDERED: SUGAMMADEX SODIUM 500 MG/5 ML VIAL (BRIDION) As Ordered ONE (10:04)
[2023-12-04] MEDS ORDERED: KETOROLAC 60MG 2ML VIAL As Ordered ONE (10:32)
[2023-12-04] MEDS: ONDANSETRON 4MG 2ML VIAL IV PRN (12:42)
[2023-12-04] MEDS ORDERED: fentaNYL 100 MCG/2 ML INJECTION IV PRN (12:50)
[2023-12-04] MEDS ORDERED: HYDROMORPHONE HCL 0.5 MG/ 0.5 ML SYRINGE IV PRN (12:50)
[2023-12-04] MEDS: diphenhydrAMINE 50MG/ML VIAL IV PRN (12:56)
[2023-12-04] MEDS: METOCLOPRAMIDE INJ 10MG/2ML VIAL IV ONE (13:15)
[2023-12-04] MEDS: ceFAZolin SOD 2 GM in IV 1 EA IV SCH (17:56)
[2023-12-04] MEDS: SENNA 8.6 MG TAB (SENOKOT) PO SCH (20:19)
[2023-12-05] VITALS: BP 124/52; TEMP 98.8; O2SAT 97
[2023-12-05 04:00] VITALS: BP 156/68; TEMP 98.1; O2SAT 98
[2023-12-05 06:41] LABS: HEMATOCRIT 29.6 % (36.0-47.0); HEMOGLOBIN 10.2 g/dl (12.0-15.5); MEAN CORPUSCULAR HEMOGLOBIN 31.9 pg (27.0-33.0); MEAN CORPUSCULAR HGB CONC 34.5 g/dl (32.0-36.5); MEAN CORPUSCULAR VOLUME 92.5 fl (80.0-96.0); PLATELET COUNT, AUTOMATED 201 10^3/uL (150-450); WHITE BLOOD COUNT 10.7 10^3/uL (4.0-10.0)
[2023-12-05 07:06] LABS: HEMOGLOBIN A1c 6.4 % (4.0-6.0)
[2023-12-05 07:18] LABS: ALBUMIN 3.1 G/DL (3.2-5.2); BILIRUBIN,TOTAL 0.5 MG/DL (0.3-1.2); CALCIUM LEVEL 8.4 MG/DL (8.3-10.6); CREATININE FOR GFR 1.23 MG/DL (0.55-1.30); GLOMERULAR FILTRATION RATE 44.4 (>32); MAGNESIUM LEVEL 1.8 MG/DL (1.8-2.4); POTASSIUM SERUM 4.3 MMOL/L (3.5-5.1); TOTAL PROTEIN 5.8 G/DL (5.7-8.2)
[2023-12-05] MEDS: PERCOCET 5MG/325MG TAB PO PRN (07:35)
[2023-12-05] MEDS: MEMANTINE 5MG TABLET (NAMENDA) PO SCH (09:00)
[2023-12-05] MEDS: VITAMIN D 1,000 INTERNATIONAL UNITS TABLET PO SCH (09:00)
[2023-12-05] MEDS: ONDANSETRON 4MG 2ML VIAL IV PRN (09:21)
[2023-12-05] MEDS: ENOXAPARIN 30MG/0.3ML SYRINGE (J1650 PER 10MG) SC SCH (10:21)
[2023-12-05 14:00] VITALS: BP 152/70; TEMP 98.4; O2SAT 95
[2023-12-05] MEDS: ATORVASTATIN 10 MG TAB PO SCH (20:51)
[2023-12-05] MEDS: FAMOTIDINE 20 MG TAB PO SCH (20:53)
[2023-12-05] MEDS: ASPIRIN 81MG ENTERIC TABLET PO SCH (21:00)
[2023-12-05 22:00] VITALS: BP 141/61; TEMP 98.8; O2SAT 95
[2023-12-06] MEDS: PERCOCET 5MG/325MG TAB PO PRN (05:48)
[2023-12-06 06:00] VITALS: BP 141/61; TEMP 97.9; O2SAT 96
[2023-12-06 14:00] VITALS: BP 139/79; TEMP 98.2; O2SAT 96
[2023-12-06] MEDS: QUEtiapine FUMARATE 25 MG TAB PO ONE ×2 (14:19→16:53)
[2023-12-06] MEDS: OLANZapine INTRAMUSCULAR 10MG VIAL IM PRN (18:17)
[2023-12-06 19:32] VITALS: BP 120/66; TEMP 98.6; O2SAT 95
[2023-12-06 23:07] VITALS: BP 124/75; TEMP 99.1; O2SAT 96
[2023-12-06 23:08] VITALS: TEMP 99.1
[2023-12-07 07:41] LABS: BASO % 0.3 % (0.0-1.0); EOS # 0.1 10^3/uL (0.0-0.5); EOS % 0.9 % (0.0-3.0); HEMATOCRIT 32.6 % (36.0-47.0); HEMOGLOBIN 11.4 g/dl (12.0-15.5); LYMPH # 1.6 10^3/uL (1.5-5.0); LYMPH % 17.7 % (24.0-44.0); MEAN CORPUSCULAR HEMOGLOBIN 32.1 pg (27.0-33.0); MEAN CORPUSCULAR VOLUME 91.8 fl (80.0-96.0); MONO # 0.9 10^3/uL (0.0-0.8); NEUTROPHILS # 6.6 10^3/uL (1.5-8.5); NEUTROPHILS % 70.7 % (36.0-66.0); PLATELET COUNT, AUTOMATED 207 10^3/uL (150-450); RED BLOOD COUNT 3.55 10^6/uL (4.00-5.40); WHITE BLOOD COUNT 9.3 10^3/uL (4.0-10.0)
[2023-12-07 08:02] LABS: CREATININE FOR GFR 1.03 MG/DL (0.55-1.30); GLOMERULAR FILTRATION RATE 54.5 (>32); POTASSIUM SERUM 4.1 MMOL/L (3.5-5.1)
[2023-12-07 14:05] VITALS: BP 155/69; TEMP 98.4; O2SAT 90
[2023-12-07 20:10] VITALS: TEMP 96.8
[2023-12-07] MEDS: cefTRIAXone SOD 1 GM in D5W MINI-BAG PLUS 50 ML IV SCH (21:22)
[2023-12-07] MEDS: traZODone 50 MG TAB PO SCH (21:23)
[2023-12-08 06:00] LABS: BASO % 0.4 % (0.0-1.0); EOS # 0.2 10^3/uL (0.0-0.5); EOS % 2.5 % (0.0-3.0); HEMATOCRIT 33.1 % (36.0-47.0); HEMOGLOBIN 11.4 g/dl (12.0-15.5); LYMPH # 1.6 10^3/uL (1.5-5.0); MEAN CORPUSCULAR HEMOGLOBIN 31.9 pg (27.0-33.0); MEAN CORPUSCULAR HGB CONC 34.4 g/dl (32.0-36.5); MEAN CORPUSCULAR VOLUME 92.7 fl (80.0-96.0); MONO # 0.9 10^3/uL (0.0-0.8); MONO % 10.6 % (2.0-8.0); NEUTROPHILS # 5.4 10^3/uL (1.5-8.5); NEUTROPHILS % 66.1 % (36.0-66.0); PLATELET COUNT, AUTOMATED 249 10^3/uL (150-450); RED BLOOD COUNT 3.57 10^6/uL (4.00-5.40); WHITE BLOOD COUNT 8.1 10^3/uL (4.0-10.0)
[2023-12-08 06:08] VITALS: BP 124/55; TEMP 97.9; O2SAT 96
[2023-12-08 06:18] LABS: CALCIUM LEVEL 8.9 MG/DL (8.3-10.6); GLOMERULAR FILTRATION RATE 56.4 (>32); POTASSIUM SERUM 4.3 MMOL/L (3.5-5.1)
[2023-12-08 14:00] VITALS: BP 113/86; TEMP 98.4; O2SAT 95
[2023-12-08 15:55] VITALS: BP 143/86; TEMP 99.3; O2SAT 96
[2023-12-08 20:48] VITALS: BP 137/53; TEMP 98.8; O2SAT 91
[2023-12-09 06:21] LABS: BASO # 0.1 10^3/uL (0.0-0.2); BASO % 0.6 % (0.0-1.0); EOS # 0.2 10^3/uL (0.0-0.5); EOS % 2.6 % (0.0-3.0); HEMATOCRIT 33.2 % (36.0-47.0); HEMOGLOBIN 11.5 g/dl (12.0-15.5); LYMPH # 1.4 10^3/uL (1.5-5.0); LYMPH % 16.1 % (24.0-44.0); MEAN CORPUSCULAR HEMOGLOBIN 31.7 pg (27.0-33.0); MEAN CORPUSCULAR HGB CONC 34.6 g/dl (32.0-36.5); MEAN CORPUSCULAR VOLUME 91.5 fl (80.0-96.0); MONO # 0.9 10^3/uL (0.0-0.8); MONO % 9.7 % (2.0-8.0); NEUTROPHILS # 6.2 10^3/uL (1.5-8.5); NEUTROPHILS % 70.5 % (36.0-66.0); PLATELET COUNT, AUTOMATED 272 10^3/uL (150-450); RED BLOOD COUNT 3.63 10^6/uL (4.00-5.40); WHITE BLOOD COUNT 8.8 10^3/uL (4.0-10.0)
[2023-12-09 06:31] VITALS: BP 162/104; TEMP 97.7
[2023-12-09 06:48] LABS: CREATININE FOR GFR 1.24 MG/DL (0.55-1.30); POTASSIUM SERUM 4.4 MMOL/L (3.5-5.1)
[2023-12-09 12:30] VITALS: BP 155/99
[2023-12-09] MEDS: QUEtiapine FUMARATE 12.5 MG HALF-TAB PO SCH (12:37)
[2023-12-09 14:00] VITALS: BP 140/60; TEMP 97.9; O2SAT 96
[2023-12-09] MEDS: traZODone 50 MG TAB PO SCH (20:17)
[2023-12-09 21:44] VITALS: BP 141/62; TEMP 98.1; O2SAT 93
[2023-12-10] MEDS: traMADol 50 MG TAB PO PRN (02:34)
[2023-12-10] MEDS: MOM 30ML SUSPENSION UDC PO PRN (03:00)
[2023-12-10 05:08] VITALS: BP 152/66; TEMP 97.5; O2SAT 98
[2023-12-10 07:30] LABS: BASO # 0.1 10^3/uL (0.0-0.2); BASO % 0.6 % (0.0-1.0); EOS # 0.3 10^3/uL (0.0-0.5); EOS % 3.2 % (0.0-3.0); HEMATOCRIT 35.2 % (36.0-47.0); HEMOGLOBIN 12.1 g/dl (12.0-15.5); LYMPH # 1.6 10^3/uL (1.5-5.0); MEAN CORPUSCULAR HEMOGLOBIN 31.3 pg (27.0-33.0); MEAN CORPUSCULAR HGB CONC 34.4 g/dl (32.0-36.5); MEAN CORPUSCULAR VOLUME 91.2 fl (80.0-96.0); MONO # 0.7 10^3/uL (0.0-0.8); NEUTROPHILS # 5.5 10^3/uL (1.5-8.5); NEUTROPHILS % 66.8 % (36.0-66.0); PLATELET COUNT, AUTOMATED 301 10^3/uL (150-450); RED BLOOD COUNT 3.86 10^6/uL (4.00-5.40); WHITE BLOOD COUNT 8.2 10^3/uL (4.0-10.0)
[2023-12-10 07:57] LABS: CALCIUM LEVEL 9.3 MG/DL (8.3-10.6); CREATININE FOR GFR 1.17 MG/DL (0.55-1.30); POTASSIUM SERUM 4.3 MMOL/L (3.5-5.1)
[2023-12-10 14:00] VITALS: BP 127/60; TEMP 97.5; O2SAT 96
[2023-12-10 19:53] VITALS: BP 123/76; TEMP 97.3; O2SAT 96
[2023-12-10] MEDS: QUEtiapine FUMARATE 25 MG TAB PO SCH (20:42)
[2023-12-11 06:47] LABS: BASO % 0.6 % (0.0-1.0); EOS # 0.3 10^3/uL (0.0-0.5); EOS % 3.7 % (0.0-3.0); HEMATOCRIT 31.8 % (36.0-47.0); HEMOGLOBIN 11.2 g/dl (12.0-15.5); LYMPH # 1.4 10^3/uL (1.5-5.0); LYMPH % 20.8 % (24.0-44.0); MEAN CORPUSCULAR HEMOGLOBIN 32.1 pg (27.0-33.0); MEAN CORPUSCULAR HGB CONC 35.2 g/dl (32.0-36.5); MEAN CORPUSCULAR VOLUME 91.1 fl (80.0-96.0); MONO # 0.7 10^3/uL (0.0-0.8); MONO % 10.2 % (2.0-8.0); NEUTROPHILS # 4.4 10^3/uL (1.5-8.5); NEUTROPHILS % 64.3 % (36.0-66.0); PLATELET COUNT, AUTOMATED 247 10^3/uL (150-450); RED BLOOD COUNT 3.49 10^6/uL (4.00-5.40); WHITE BLOOD COUNT 6.8 10^3/uL (4.0-10.0)
[2023-12-11 07:05] LABS: CALCIUM LEVEL 8.9 MG/DL (8.3-10.6); CREATININE FOR GFR 1.03 MG/DL (0.55-1.30); GLOMERULAR FILTRATION RATE 54.5 (>32); POTASSIUM SERUM 4.7 MMOL/L (3.5-5.1)
[2023-12-11] MEDS ORDERED: QUEtiapine FUMARATE 12.5 MG HALF-TAB PO SCH (09:00)
[2023-12-11] MEDS: QUEtiapine FUMARATE 25 MG TAB PO SCH (09:24)
[2023-12-11 14:15] VITALS: BP 133/70; TEMP 98.6; O2SAT 95
[2023-12-11] MEDS: BREXPIPRAZOLE 0.5MG TABLET (REXULTI) PO SCH (16:29)
[2023-12-11 19:22] VITALS: BP 153/65; TEMP 98.6; O2SAT 95
[2023-12-11] MEDS: QUEtiapine FUMARATE 25 MG TAB PO PRN (20:34)
[2023-12-11] MEDS ORDERED: QUEtiapine FUMARATE 25 MG TAB PO SCH (22:00)
[2023-12-12 05:46] VITALS: BP 168/74; TEMP 97.3; O2SAT 97
[2023-12-12 06:02] LABS: BASO # 0.1 10^3/uL (0.0-0.2); BASO % 0.8 % (0.0-1.0); EOS # 0.4 10^3/uL (0.0-0.5); EOS % 5.2 % (0.0-3.0); HEMATOCRIT 31.4 % (36.0-47.0); HEMOGLOBIN 11.1 g/dl (12.0-15.5); LYMPH # 1.5 10^3/uL (1.5-5.0); LYMPH % 21.4 % (24.0-44.0); MEAN CORPUSCULAR HEMOGLOBIN 32.1 pg (27.0-33.0); MEAN CORPUSCULAR HGB CONC 35.4 g/dl (32.0-36.5); MEAN CORPUSCULAR VOLUME 90.8 fl (80.0-96.0); MONO # 0.7 10^3/uL (0.0-0.8); MONO % 9.3 % (2.0-8.0); NEUTROPHILS # 4.5 10^3/uL (1.5-8.5); PLATELET COUNT, AUTOMATED 258 10^3/uL (150-450); RED BLOOD COUNT 3.46 10^6/uL (4.00-5.40); WHITE BLOOD COUNT 7.1 10^3/uL (4.0-10.0)
[2023-12-12 06:28] LABS: CALCIUM LEVEL 8.9 MG/DL (8.3-10.6); CREATININE FOR GFR 1.05 MG/DL (0.55-1.30); GLOMERULAR FILTRATION RATE 53.3 (>32); POTASSIUM SERUM 4.4 MMOL/L (3.5-5.1)
[2023-12-12] MEDS: PANTOPRAZOLE 40MG TAB (PROTONIX) PO SCH (09:35)
[2023-12-12 14:55] VITALS: BP 134/65; TEMP 97.9; O2SAT 96
[2023-12-12 20:02] VITALS: BP 137/64; TEMP 97.9; O2SAT 94
[2023-12-12] MEDS: OLANZapine INTRAMUSCULAR 10MG VIAL IM PRN (23:51)
[2023-12-13 05:09] VITALS: BP 139/64; TEMP 97.9; O2SAT 94
[2023-12-13 06:01] LABS: BASO % 0.7 % (0.0-1.0); EOS # 0.3 10^3/uL (0.0-0.5); EOS % 5.1 % (0.0-3.0); HEMATOCRIT 31.4 % (36.0-47.0); HEMOGLOBIN 10.9 g/dl (12.0-15.5); LYMPH # 1.1 10^3/uL (1.5-5.0); LYMPH % 19.2 % (24.0-44.0); MEAN CORPUSCULAR HEMOGLOBIN 31.4 pg (27.0-33.0); MEAN CORPUSCULAR HGB CONC 34.7 g/dl (32.0-36.5); MEAN CORPUSCULAR VOLUME 90.5 fl (80.0-96.0); MONO # 0.6 10^3/uL (0.0-0.8); MONO % 10.8 % (2.0-8.0); NEUTROPHILS # 3.8 10^3/uL (1.5-8.5); NEUTROPHILS % 63.7 % (36.0-66.0); PLATELET COUNT, AUTOMATED 293 10^3/uL (150-450); RED BLOOD COUNT 3.47 10^6/uL (4.00-5.40); WHITE BLOOD COUNT 5.9 10^3/uL (4.0-10.0)
[2023-12-13 06:25] LABS: CALCIUM LEVEL 8.6 MG/DL (8.3-10.6); CREATININE FOR GFR 1.31 MG/DL (0.55-1.30); GLOMERULAR FILTRATION RATE 41.3 (>32); POTASSIUM SERUM 4.2 MMOL/L (3.5-5.1)
[2023-12-13] MEDS: MIRALAX *UNIT DOSE* 17GM PACKET PO SCH (08:05)
[2023-12-13] MEDS: HEPARIN SOD (PORCINE) 5000UNITS/ML 1ML VIAL/SYRINGE SQ SCH (08:54)
[2023-12-13 12:00] VITALS: BP 131/65; TEMP 97.9; O2SAT 96
[2023-12-13 20:35] VITALS: BP 146/64; TEMP 97.7; O2SAT 97
[2023-12-14 04:54] VITALS: BP 169/74; TEMP 97.9; O2SAT 96
[2023-12-14 05:21] VITALS: BP 150/82
[2023-12-14 06:09] LABS: HEMATOCRIT 33.9 % (36.0-47.0); HEMOGLOBIN 11.8 g/dl (12.0-15.5); MEAN CORPUSCULAR HEMOGLOBIN 31.9 pg (27.0-33.0); MEAN CORPUSCULAR HGB CONC 34.8 g/dl (32.0-36.5); MEAN CORPUSCULAR VOLUME 91.6 fl (80.0-96.0); PLATELET COUNT, AUTOMATED 330 10^3/uL (150-450); WHITE BLOOD COUNT 6.3 10^3/uL (4.0-10.0)
[2023-12-14 06:41] LABS: ALBUMIN 3.4 G/DL (3.2-5.2); BILIRUBIN,TOTAL 0.4 MG/DL (0.3-1.2); CALCIUM LEVEL 9.1 MG/DL (8.3-10.6); CREATININE FOR GFR 1.24 MG/DL (0.55-1.30); POTASSIUM SERUM 4.4 MMOL/L (3.5-5.1); TOTAL PROTEIN 6.6 G/DL (5.7-8.2)
[2023-12-14 12:52] VITALS: BP 142/75; TEMP 97.9; O2SAT 98
[2023-12-14 20:00] VITALS: BP 126/68; TEMP 97.7; O2SAT 98
[2023-12-15 04:00] VITALS: BP 166/71; TEMP 98.1; O2SAT 97
[2023-12-15 12:00] VITALS: BP 116/54; TEMP 97.7; O2SAT 97
[2023-12-15 19:47] VITALS: BP 165/81; TEMP 97.7; O2SAT 97
[2023-12-16 05:24] VITALS: BP 155/64; TEMP 97.3; O2SAT 98
[2023-12-16 12:10] VITALS: BP 124/72; TEMP 97.5; O2SAT 97
[2023-12-16 20:14] VITALS: BP 148/62; TEMP 98.1; O2SAT 99
[2023-12-17 05:31] VITALS: BP 124/55; TEMP 97.5; O2SAT 99
[2023-12-17 07:16] LABS: BASO # 0.1 10^3/uL (0.0-0.2); BASO % 0.7 % (0.0-1.0); EOS # 0.3 10^3/uL (0.0-0.5); EOS % 4.2 % (0.0-3.0); HEMATOCRIT 29.5 % (36.0-47.0); HEMOGLOBIN 10.4 g/dl (12.0-15.5); LYMPH # 2.1 10^3/uL (1.5-5.0); LYMPH % 27.9 % (24.0-44.0); MEAN CORPUSCULAR HEMOGLOBIN 32.1 pg (27.0-33.0); MEAN CORPUSCULAR HGB CONC 35.3 g/dl (32.0-36.5); MONO # 0.7 10^3/uL (0.0-0.8); NEUTROPHILS # 4.3 10^3/uL (1.5-8.5); NEUTROPHILS % 57.8 % (36.0-66.0); PLATELET COUNT, AUTOMATED 311 10^3/uL (150-450); RED BLOOD COUNT 3.24 10^6/uL (4.00-5.40); WHITE BLOOD COUNT 7.4 10^3/uL (4.0-10.0)
[2023-12-17 07:43] LABS: CALCIUM LEVEL 8.7 MG/DL (8.3-10.6); CREATININE FOR GFR 1.37 MG/DL (0.55-1.30); GLOMERULAR FILTRATION RATE 39.2 (>32); POTASSIUM SERUM 4.5 MMOL/L (3.5-5.1)
[2023-12-17 11:50] VITALS: BP 117/67; TEMP 97.6; O2SAT 98
[2023-12-17 20:00] VITALS: BP 125/58; TEMP 98.1; O2SAT 96
[2023-12-18 04:00] VITALS: BP 139/59; TEMP 97.5; O2SAT 97
[2023-12-18 12:00] VITALS: BP 134/59; TEMP 97.9; O2SAT 98
[2023-12-18] MEDS: ENOXAPARIN 30MG/0.3ML SYRINGE (J1650 PER 10MG) SC SCH (19:57)
[2023-12-18 20:00] VITALS: BP 138/57; TEMP 97.4; O2SAT 94
[2023-12-19] MEDS ORDERED: CALCIUM CARBONATE 500 MG CHEW U/D PO PRN (00:20)
[2023-12-19] MEDS: MAALOX 30 ML SUSP *UDC PO PRN (00:24)
[2023-12-19 00:59] LABS: BASO # 0.1 10^3/uL (0.0-0.2); BASO % 0.6 % (0.0-1.0); EOS # 0.3 10^3/uL (0.0-0.5); EOS % 3.6 % (0.0-3.0); HEMATOCRIT 30.6 % (36.0-47.0); HEMOGLOBIN 10.5 g/dl (12.0-15.5); LYMPH # 2.1 10^3/uL (1.5-5.0); LYMPH % 26.5 % (24.0-44.0); MEAN CORPUSCULAR HEMOGLOBIN 31.8 pg (27.0-33.0); MEAN CORPUSCULAR HGB CONC 34.3 g/dl (32.0-36.5); MEAN CORPUSCULAR VOLUME 92.7 fl (80.0-96.0); MONO # 0.6 10^3/uL (0.0-0.8); MONO % 7.5 % (2.0-8.0); NEUTROPHILS # 4.8 10^3/uL (1.5-8.5); NEUTROPHILS % 61.2 % (36.0-66.0); PLATELET COUNT, AUTOMATED 335 10^3/uL (150-450); WHITE BLOOD COUNT 7.8 10^3/uL (4.0-10.0)
[2023-12-19 01:27] LABS: CK-MB VALUE MASS 2.2 NG/ML (<3.6)
[2023-12-19 01:28] LABS: ALBUMIN 3.3 G/DL (3.2-5.2); BILIRUBIN,TOTAL 0.3 MG/DL (0.3-1.2); CALCIUM LEVEL 8.9 MG/DL (8.3-10.6); CREATININE FOR GFR 1.32 MG/DL (0.55-1.30); GLOMERULAR FILTRATION RATE 40.9 (>32); MAGNESIUM LEVEL 2.1 MG/DL (1.8-2.4); MB/CK RELATIVE INDEX 2.11 (< OR =4); POTASSIUM SERUM 5.3 MMOL/L (3.5-5.1); TOTAL PROTEIN 6.4 G/DL (5.7-8.2)
[2023-12-19 04:00] VITALS: BP 153/68; TEMP 97.7; O2SAT 96
[2023-12-19] MEDS: BREXPIPRAZOLE 0.5MG TABLET (REXULTI) PO SCH (09:20)
[2023-12-19 12:00] VITALS: BP 114/57; TEMP 97.7; O2SAT 98
[2023-12-19 20:00] VITALS: BP 121/51; TEMP 97.7; O2SAT 96
[2023-12-20 04:00] VITALS: BP 115/56; TEMP 97.5; O2SAT 96
[2023-12-20 12:04] VITALS: BP 104/82; TEMP 97; O2SAT 98
[2023-12-20 20:07] VITALS: BP 135/59; TEMP 97.7; O2SAT 97
[2023-12-22 04:07] VITALS: BP 118/54; TEMP 97.5; O2SAT 96
[2023-12-23 04:43] VITALS: BP 131/60; TEMP 97.5; O2SAT 95
[2023-12-23] MEDS ORDERED: TRAM50TA2 PO (09:02)
[2023-12-23] MEDS ORDERED: COLA100C5 PO (09:02)
[2023-12-23] MEDS ORDERED: ASPI-615 PO (09:02)
[2023-12-23] MEDS ORDERED: REXU1TAB2 PO (09:02)
[2023-12-23] MEDS ORDERED: ACET1TAB55 PO (09:02)
[2023-12-23] MEDS ORDERED: SENO8.6T5 PO (09:02)
[2023-12-23] MEDS ORDERED: MIRA33506 PO (09:02)
[2023-12-23] MEDS ORDERED: TRAZ-252 PO (09:02)
[2023-12-23] MEDS ORDERED: CALC200T15 PO (09:02)
[2023-12-23] MEDS ORDERED: PANT40TA29 PO (09:02)
[2023-12-23] MEDS ORDERED: ATOR1TAB19 PO (16:06)
[2023-12-23] MEDS ORDERED: GABA-1171 PO (16:08)
[2023-12-23] MEDS ORDERED: MAGN500T12 PO (16:08)
[2023-12-23] MEDS ORDERED: FAMO40TA3 PO (16:08)
[2023-12-23] MEDS ORDERED: ZOLO25TA PO (16:11)
[2023-12-23] MEDS ORDERED: PROBCAP14 PO (16:11)
[2023-12-23] MEDS ORDERED: VITAD400CA PO (16:11)
[2023-12-24] MEDS ORDERED: SERO1TAB3 PO (13:37)
[2023-12-28] MEDS ORDERED: ABIL1TAB13 PO (07:57)
== END 2023-12-23 12:05 | disposition other institution (70) | DRG 516 ==
LOC: EDBD 00:32 → M ED 00:32 → M ED INP 03:34 → M MS5PR 05:23 → OBSVTOIN 12-07 11:13
PROVIDERS: ADMIT Internal Medicine; ATTEND Internal Medicine Nephrology
PROC: 0QSF04Z Reposition Left Patella with Internal Fixation Device, Open Approach (ICD-10-PCS; principal; 2023-12-04 09:30)
DX: S82.032A Displaced transverse fracture of left patella, initial encounter for closed fracture (principal); N17.9 Acute kidney failure, unspecified; F03.918 Unspecified dementia, unspecified severity, with other behavioral disturbance; W01.0XXA Fall on same level from slipping, tripping and stumbling without subsequent striking against object, initial encounter; Y92.009 Unspecified place in unspecified non-institutional (private) residence as the place of occurrence of the external cause; Y93.9 Activity, unspecified; E11.42 Type 2 diabetes mellitus with diabetic polyneuropathy; E11.22 Type 2 diabetes mellitus with diabetic chronic kidney disease; N18.30 Chronic kidney disease, stage 3 unspecified; I12.9 Hypertensive chronic kidney disease with stage 1 through stage 4 chronic kidney disease, or unspecified chronic kidney disease; M25.462 Effusion, left knee; R29.6 Repeated falls; E78.00 Pure hypercholesterolemia, unspecified; K21.9 Gastro-esophageal reflux disease without esophagitis; F17.200 Nicotine dependence, unspecified, uncomplicated; J44.9 Chronic obstructive pulmonary disease, unspecified; F41.9 Anxiety disorder, unspecified; F32.A Depression, unspecified; Z90.49 Acquired absence of other specified parts of digestive tract; Z90.79 Acquired absence of other genital organ(s); Z98.41 Cataract extraction status, right eye; Z91.013 Allergy to seafood; Z91.018 Allergy to other foods; Z88.5 Allergy status to narcotic agent; Z85.51 Personal history of malignant neoplasm of bladder

== ENCOUNTER → 2024-01-05 | Outpatient (CLI) | payer MEDICARE ==
[~2024-01-05] MED LIST changes: +ABIL1TAB13 PO; +ACET1TAB55 PO; +CALC200T15 PO; +COLA100C5 PO; +FAMO40TA3 PO; +MIRA33506 PO; +REXU1TAB2 PO; +SENO8.6T5 PO; +SERO1TAB3 PO; +TRAM50TA2 PO; +TRAZ-252 PO
== END ==
LOC: M SOG 07:57
PROVIDERS: ATTEND Physician Assistant
DX: S82.032D Displaced transverse fracture of left patella, subsequent encounter for closed fracture with routine healing (principal)

== ENCOUNTER → 2024-02-03 | Outpatient (CLI) | payer MEDICARE | LOC: M SOG 13:47 | PROVIDERS: ATTEND Physician Assistant | DX: S82.032A Displaced transverse fracture of left patella, initial encounter for closed fracture (principal); Y93.9 Activity, unspecified; Y92.9 Unspecified place or not applicable ==